=== PATIENT | male | born 1940 | race Caucasian/White ===

== ENCOUNTER 2017-06-07 08:50 | Emergency (ER) | payer OTHER, MEDICARE ==
[~2017-06-07] VITALS: Ht 177.8 cm; Wt 96.2 kg
[~2017-06-07 08:50] MED LIST: ALLOPURINOL100 M1 PO; AMLODIPINE BESY10 M1 PO; HUMALOG 100U100 U/ML SC; LANTUS SOL100 UNIT/1 SC; LASIX40 M1 PO; LITE COAT ASPI325 MG PO; LYRICA75 MG PO; PLAVIX 75MG TAB75 MG PO; PRAVASTATIN40 MG PO
[2017-06-07 09:43] LABS: ABSOLUTE BASOPHIL COUNT 0.1 /CUMM (0.0-0.2); ABSOLUTE EOSINOPHIL COUNT 0.5 /CUMM (0.0-0.7); ABSOLUTE GRANULOCYTE CT 6.8 /CUMM (1.4-6.5); ABSOLUTE LYMPH COUNT 1.8 /CUMM (1.2-3.4); ABSOLUTE MONOCYTE COUNT 0.7 /CUMM (0.10-0.60); BASOPHIL % 0.8 % (0.0-2.0); EOSINOPHIL % 4.9 % (0-5); GRANULOCYTE % 68.8 % (42.2-75.2); HEMATOCRIT 45.2 % (42-52); MEAN CORPUSCULAR HGB CONC 32.4 G/DL (33.0-37.0); MEAN CORPUSCULAR VOLUME 92.6 FL (80.0-94.0); MEAN PLATELET VOLUME 8.2 FL (7.4-10.4); PLATELET COUNT 423 /CUMM (130-400); RBC DISTRIBUTION WIDTH 14.7 % (11.5-14.5); RED BLOOD CELL CT 4.88 /CUMM (4.70-6.10); WHITE BLOOD CELL COUNT 9.9 /CUMM (4.8-10.8)
[2017-06-07] MEDS ORDERED: CLOPIDOGREL75 M1 PO (09:50)
--- NOTE | 2017-06-07 09:50 | RADIOLOGY REPORT ---
EXAMINATION: XR PORTABLE CHEST CLINICAL INFORMATION: Change in mental status. COMPARISON: None TECHNIQUE: Portable frontal view of the chest was obtained. FINDINGS: The lungs are well expanded. No convincing lobar consolidation. No pulmonary edema, pleural effusion, or pneumothorax. No mediastinal widening. Sternotomy wires. Aortic atherosclerotic calcification. No acute osseous abnormalities. IMPRESSION: No acute pulmonary pathology demonstrated.
--- NOTE | 2017-06-07 09:53 | ED AMS/SEIZURE/WEAK/DIZZY ---
History of Present Illness General Chief Complaint: Altered Mental Status Stated Complaint: AMS, CONFUSION, S/P STRESS TEST Source: patient, family Exam Limitations: no limitations Vital Signs & Intake/Output Vital Signs & Intake/Output ED Intake and Output 06/08 0000 06/07 1200 Intake Total Output Total Balance Patient 212 lb Weight Weight Reported by Patient Measurement Method Allergies Coded Allergies: NO KNOWN ALLERGIES (03/14/14) Reconcile Medications Allopurinol 100 MG TABLET 1 TAB PO DAILY GOUT (Reported) Amlodipine Besylate 10 MG TABLET 1 TAB PO DAILY HEART (Reported) Aspirin (Lite Coat Aspirin) 325 MG TABLET 1 TAB PO DAILY HEART (Reported) Clopidogrel Bisulfate (Clopidogrel) 75 MG TABLET 1 TAB PO DAILY BLOOD THINNER (Reported) Furosemide (Lasix) 40 MG TABLET 1 TAB PO DAILY WATER RETENTION (Reported) Insulin Glargine,Hum.rec.anlog (Lantus Solostar) 100 UNIT/ML (3 ML) INSULN.PEN 36 UNIT SC QPM DIABETES (Reported) Triage Note: SENT FROM CARDIOLOGY DEPARTMENT, PT WAS PREPARING FOR A STRESS TEST, HAD SHORT EPISODE OF UNRESPONSIVENESS DURING IV INSERTION. PRESENTLY ALERT, DENIES HEADACHE, BLURRED VISION OR WEAKNESS. Triage Nurses Notes Reviewed? yes Onset: Abrupt Duration: minute(s): Timing: single episode today Severity: moderate HPI: A 77 year old male with hx CAD s/p CABG, HTN, Diabetes, CVA on plavix was brought in to ER c/o syncopal episode prior to arrival. Patient was at Dr. Brandon's office for a routine echocardiogram and stress test. Patient states that while they were putting an IV in his arm he passed out. Patient states IV was being put in and he went to lay back and then had episode of syncope lasting approximately 15 seconds. Patient states that the nurses around him told them his eyes were unfocused and he was diaphoretic and clammy. Patient has no history of a similar episode in the past, he states he has had blood work in the past without syncopal episode. Patient currently feels in his usual state of health although he has not eaten today and does feel hungry. He denies headache , chest pain, dyspnea, abdominal pain, blurry vision, dizziness, presyncope, vomiting. (Leann PERALTA,Daria Short) Past History Travel History Traveled to [place] past 21 day No Medical History Any Pertinent Medical History? see below for history Neurological: NONE Cardiovascular: hypertension, hyperlipidemia Endocrine: diabetes Surgical History Surgical History: non-contributory Psychosocial History What is your primary language Greek Tobacco Use: Quit >30 days ago ETOH Use: denies use Family History Hx Contributory? No (Daria Briscoe) Review of Systems Review of Systems Constitutional: Reports: no symptoms. EENTM: Reports: no symptoms. Respiratory: Reports: no symptoms. Cardiovascular: Reports: see HPI. GI: Reports: no symptoms. Genitourinary: Reports: no symptoms. Musculoskeletal: Reports: no symptoms. Skin: Reports: see HPI. Neurological/Psychological: Reports: see HPI. Hematologic/Endocrine: Reports: no symptoms. Immunologic/Allergic: Reports: no symptoms. All Other Systems: Reviewed and Negative (Daria Briscoe) Physical Exam Physical Exam General Appearance: well developed/nourished, no apparent distress, alert, awake Head: atraumatic, normal appearance Eyes: Bilateral: normal appearance, PERRL, EOMI. Ears, Nose, Throat: normal pharynx, normal ENT inspection, hearing grossly normal Neck: normal inspection, supple, full range of motion Respiratory: normal breath sounds, no respiratory distress, lungs clear Cardiovascular: regular rate/rhythm Peripheral Pulses: 2+ radial (R), 2+ radial (L) Gastrointestinal: normal bowel sounds, soft, non-tender, no organomegaly Back: normal inspection, normal range of motion Extremities: normal range of motion Neurologic/Psych: awake, alert, oriented x 3, kitchen hand II-XII nml as tested, cerebellar testing WNL Skin: intact, normal color, warm/dry Core Measures ACS in differential dx? Yes CVA/TIA Diagnosis No Sepsis Present: No Sepsis Focused Exam Completed? No (Daria Briscoe) Progress Differential Diagnosis: arrythmia, anemia, benign positional vertigo, CVA/stroke , dehydration, drug intoxication, electrolyte imbalance, GI bleed, hypoglycemia, intracranial mass/tumor, pneumonia, postural hypotension, presyncope Plan of Care: Orders Procedure Date/time Status Heart Healthy Diet 06/07 L Active TROPONIN LEVEL 06/07 1230 Complete EKG 06/07 1230 Active TROPONIN LEVEL 06/07 0912 Complete COMPREHENSIVE METABOLIC PANEL 06/07 0912 Complete CBC WITHOUT DIFFERENTIAL 06/07 0912 Complete EKG 06/07 0907 Active Laboratory Tests 06/07/17 1219: Troponin I < 0.01 06/07/17 0926: Anion Gap 13, Estimated GFR 26 L, BUN/Creatinine Ratio 20.8, Glucose 231 H, Calcium 10.0, Total Bilirubin 0.4, AST 14 L, ALT 25, Alkaline Phosphatase 93, Troponin I < 0.01, Total Protein 6.6, Albumin 4.0, Globulin 2.6, Albumin/ Globulin Ratio 1.5, CBC w Diff NO MAN DIFF REQ, RBC 4.88, MCV 92.6, MCH 30.0, MCHC 32.4 L, RDW 14.7 H, MPV 8.2, Gran % 68.8, Lymphocytes % 18.5 L, Monocytes % 7.0, Eosinophils % 4.9, Basophils % 0.8, Absolute Granulocytes 6.8 H, Absolute Lymphocytes 1.8, Absolute Monocytes 0.7 H, Absolute Eosinophils 0.5 , Absolute Basophils 0.1 Patient's EKG is in sinus rhythm, troponin is negative. Chest x-ray within normal limits. Physical exam without acute findings. This patient does have significant past medical history of previous open heart surgery. He has no current chest pain or dyspnea. Will obtain repeat EKG and troponin to further rule out ACS. Dr. White agrees with this plan. Repeat EKG without acute changes, second troponin is negative. The patient feels in his usual state of health, he has no chest pain, no presyncope. Patient feels ready to go home. Vital signs have been stable while here in the emergency department. Spoke with Dr. Brandon regarding this patient. He agrees with out plan of care, he will follow up with the patient in the office. Diagnostic Imaging: Viewed by Me: Radiology Read. Discussed w/RAD: Radiology Read. CXR Impression: PATIENT: MEGHAN GIBBONS PRESENT AGE : 77 PATIENT ACCOUNT NO: [id number] : 38 LOCATION: [facility] ORDERING PHYSICIAN: Yoseph White MD SERVICE DATE: 06/07/17 EXAM TYPE: RAD - XRY- PORTABLE CHEST XRAY EXAMINATION: XR PORTABLE CHEST CLINICAL INFORMATION: Change in mental status. COMPARISON: None TECHNIQUE: Portable frontal view of the chest was obtained. FINDINGS: The lungs are well expanded. No convincing lobar consolidation. No pulmonary edema, pleural effusion, or pneumothorax. No mediastinal widening. Sternotomy wires. Aortic atherosclerotic calcification. No acute osseous abnormalities. IMPRESSION: No acute pulmonary pathology demonstrated. DICTATED BY: Rodrick Vyas MD DATE/TIME DICTATED:06/07/17941 NEUROSURGERY SPINE PHYSICIAN:TRINY DATE/TIME TRANSCRIBED:06/07/17941 CONFIDENTIAL, DO NOT COPY WITHOUT APPROPRIATE AUTHORIZATION. <Electronically signed in Other Vendor System> SIGNED BY: Rodrick Vyas MD 06/07/17 7999 Initial ED EKG: sinus rhythm @57bpm, LVH, nonspecific ST changes Prior EKG: changed (04/19/14 - slt t wave changes) (Daria Briscoe) Departure Departure Disposition: HOME OR SELF CARE Condition: Stable Clinical Impression Primary Impression: Syncopal episodes Qualifiers: Syncope type: vasovagal syncope Qualified Code: R55 - Syncope and collapse Referrals: Jaden Malagon MD (PCP/Family) Additional Instructions: Follow-up with Dr. Brandon this week, if you cannot hear from them in the next 2 days call the office. Increase your fluids and rest. Return with any worsening symptoms or concerns. Please note that there might be incidental findings in your evaluation that are unrelated to the current emergency department visit. Please notify your primary care doctor about this emergency department visit in order to obtain and review all of the testing performed so that these incidental findings can be monitored as needed. If you had an x-ray performed, please understand that some fractures may not be seen on the initial set of x-rays. If your symptoms persist you might need a repeat set of x-rays to check for such a fracture. If you had a laceration evaluated, please understand that foreign bodies such as glass or wood may not be visible to the naked eye or on plain x-rays. If the wound becomes red, swollen, increasingly more painful or if there is any drainage from the wound, please have it reevaluated by a physician for the possibility of a retained foreign body. If you're unable to follow up as outlined in the discharge instructions please return to the emergency department. Thank you for choosing the [facility] Emergency Department for your care. It was a pleasure to serve you today. Departure Forms: Customer Survey General Discharge Information (Daria Briscoe) PA/SEAMER PANTY HOSE Co-Sign Statement Statement: ED Attending supervision documentation- x I saw and evaluated the patient. I have also reviewed all the pertinent lab results and diagnostic results. I agree with the findings and the plan of care as documented in the PA's/SEAMER PANTY HOSE's documentation. [] I have reviewed the ED Record and agree with the PA's/SEAMER PANTY HOSE's documentation. [] Additions or exceptions (if any) to the PAs/SEAMER PANTY HOSE's note and plan are summarized below: [] (Christopher BENAVIDEZ,Yoseph)
[2017-06-07 12:58] VITALS: BP 137/89
== END 2017-06-07 13:46 ==
LOC: ERH 08:50
PROVIDERS: Emergency Medicine
DX: R55 Syncope and collapse (principal); I10 Essential (primary) hypertension; E11.9 Type 2 diabetes mellitus without complications; Z79.4 Long term (current) use of insulin; Z87.891 Personal history of nicotine dependence
CPT/HCPCS: 71045; 93005; 93010

== ENCOUNTER 2017-11-09 08:43 | Inpatient (IN) | payer OTHER, MEDICARE ==
[~2017-11-09] VITALS: Ht 177.8 cm; Wt 104.8 kg
[~2017-11-09 08:43] MED LIST changes: +CLOPIDOGREL75 M1 PO
--- NOTE | 2017-11-09 09:09 | ED CARDIAC/CP/PALPITATIONS ---
History of Present Illness General Chief Complaint: Chest Pain Stated Complaint: CHEST PAIN, "STOMACH SWELLING UP" Source: patient Exam Limitations: no limitations Vital Signs & Intake/Output Vital Signs & Intake/Output Vital Signs Date Time Temp Pulse Resp B/P B/P Pulse O2 O2 Flow FiO2 Mean Ox Delivery Rate 11/09 905 98.0 54 18 169/78 93 Room Air Allergies Coded Allergies: NO KNOWN ALLERGIES (11/09/17) Reconcile Medications Allopurinol 100 MG TABLET 1 TAB PO DAILY GOUT (Reported) Amlodipine Besylate 10 MG TABLET 1 TAB PO DAILY HEART (Reported) Aspirin (Lite Coat Aspirin) 325 MG TABLET 1 TAB PO DAILY HEART (Reported) Atorvastatin Calcium (Lipitor) 80 MG TABLET 1 TAB PO DAILY CHOLESTEROL ( Reported) Cholecalciferol (Vitamin D3) (Vitamin D-3) 2,000 UNIT TABLET 1 TAB PO DAILY VITAMIN SUPPORT (Reported) Clopidogrel Bisulfate (Clopidogrel) 75 MG TABLET 1 TAB PO DAILY BLOOD THINNER (Reported) Furosemide (Lasix) 40 MG TABLET 1 TAB PO DAILY WATER RETENTION (Reported) Insulin Aspart, Recombinant (Novolog Flexpen) (Unknown Strength) INSULN.PEN ( Unknown Dose) SC TIDAC DIABETES (Reported) Insulin Detemir (Levemir Flextouch) 100 UNIT/ML (3 ML) INSULN.PEN 40 UNITS SC DAILY DIABETES (Reported) Triage Note: 77M TO ED WITH HEAVY TRANSVERSE CHEST PAIN THAT RADIATES TO BOTH SIDES OF CHEST AND INTO POSTERIOR NECK SINCE YESTERDAY AND UNSURE OF WHAT HE WAS DOING WHEN THE PAIN STARTED. PT FOLLOWED BY DR DUBON, CURRENTLY TAKES PLAVIX AND HX QUAD CABG 20 YEARS AGO. ALSO REPORTS SLIGHT SOB WITH CARDIAC EXERCISE PHYSIOLOGIST COUGH AND O2 SAT 93-94% RA. SKIN WARM, DRY, INTACT. NOTABLE CHANGES ON EKG WITH INVERTED T WAVES AND VENTRICULAR ECTOPY, WIDE COMPLEXES. PT NOTED TO BE BELCHING IN [place], STATES THAT HAS BEEN HAPPENING MORE THE LAST DAY OR SO AND HE FEELS THAT HIS ABDOMEN "FEELS LIKE A ROCK". LAST BM YESTERDAY AND NORMAL, DENIES BLACK OR BLOODY STOOLS. #18 EST TO AMA AND LABS DRAWN AND SENT AND PT TAKEN IMMEDIATELY TO ROOM 10 FOR EVALUATION Triage Nurses Notes Reviewed? yes Onset: Abrupt Duration: day(s): (1), constant, continues in ED Timing: single episode today Quality/Severity: moderate, pressure (HEAVY) Location: central Radiation: LEFT RT CHEST Activities at Onset: activity Prior Chest Pain/Card Workup: heart attack (20 YEARS AGO ), CABG 20 YEARS AGO Modifying Factors: Worsens With: exercise. Nitro Today/Relief: 0.4 mg x 1, provided by ED, mild relief, NITRO OINTMENT MILD REFILF Aspirin Today: 325 mg x 1, provided at home HPI: 77-year-old male history of hypertension, hyperlipidemia, CKD, coronary artery disease, [place] with CABG 20 years ago presents for evaluation of chest pain. The pain started yesterday and has been persistent. The pain started while he was walking around and seems to get worse on exertion somewhat better at rest. The pain is located in the center of his chest radiates to both sides of the chest. He describes it as a heaviness and pressure. Associated with some shortness of breath and cough. No nausea vomiting sweats or chills no hemoptysis or lower extremity edema. He states this does not feel like his previous heart attack. He took 325 aspirin 75 of Plavix before arrival. No recent surgery or recent trauma. He sees Dr. Dubon. He also reports that he feels like there is a "rock in MY abdomen". No diarrhea no history of constipation. (Severo Bethea) Past History Travel History Traveled to [place] past 21 day No Medical History Any Pertinent Medical History? see below for history Neurological: NONE EENT: NONE Cardiovascular: hypertension, hyperlipidemia Respiratory: NONE Gastrointestinal: NONE Hepatic: NONE Renal: NONE Musculoskeletal: NONE Psychiatric: NONE Endocrine: diabetes Blood Disorders: NONE Surgical History Surgical History: non-contributory Psychosocial History What is your primary language Wallisian Tobacco Use: Refused to answer Family History Hx Contributory? No (Severo Bethea) Review of Systems Review of Systems Constitutional: Reports: no symptoms. EENTM: Reports: no symptoms. Respiratory: Reports: see HPI, cough, short of breath. Cardiovascular: Reports: no symptoms. GI: Reports: see HPI, abdominal pain. Genitourinary: Reports: no symptoms. Musculoskeletal: Reports: no symptoms. Skin: Reports: no symptoms. Neurological/Psychological: Reports: no symptoms. Hematologic/Endocrine: Reports: no symptoms. Immunologic/Allergic: Reports: no symptoms. All Other Systems: Reviewed and Negative (Severo Bethea) Physical Exam Physical Exam General Appearance: well developed/nourished, no apparent distress, alert, awake Head: atraumatic, normal appearance Eyes: Bilateral: normal appearance, PERRL, EOMI. Ears, Nose, Throat: normal pharynx, normal ENT inspection, hearing grossly normal Neck: normal inspection, supple, full range of motion Respiratory: normal breath sounds, chest non-tender, no respiratory distress, lungs clear Cardiovascular: regular rate/rhythm, normal peripheral pulses Peripheral Pulses: 2+ radial (R), 2+ radial (L) Gastrointestinal: normal bowel sounds, soft, non-tender, no organomegaly, distention Rectal: normal exam, normal rectal tone, heme negative stool Back: normal inspection, normal range of motion, no vertebral tenderness Extremities: normal inspection, normal range of motion, no edema Neurologic/Psych: no motor/sensory deficits, awake, alert, oriented x 3 Skin: intact, normal color, warm/dry Core Measures ACS in differential dx? Yes CVA/TIA Diagnosis No Sepsis Present: No Sepsis Focused Exam Completed? No (Davey PERALTA,Severo) Progress Differential Diagnosis: AMI, aortic dissection, atrial fibrillation, cholecystitis, CHF/pulm edema, costochondritis, musculoskeletal pain, myocarditis, pancreatitis, pericarditis, pneumonia, pneumothorax, pulmonary embolism, PUD/GERD, PVCs/PACs, unstable angina, V-fib/V-Tach, WPW syndrome Diagnostic Imaging: Viewed by Me: CT Scan. Discussed w/RAD: CT Scan. Radiology Impression: PATIENT: MEGHAN GIBBONS PRESENT AGE: 77 PATIENT ACCOUNT NO: [id number] : 38 LOCATION: [facility] ORDERING PHYSICIAN: Severo PERALTA SERVICE DATE: 11/09/17 EXAM TYPE: CAT - CT ABD & PELVIS W/O IV CONTRAS; CT CHEST WO IV CONTRAST EXAMINATION: CT CHEST, ABDOMEN AND PELVIS WITHOUT CONTRAST CLINICAL INFORMATION: Chest pain and shortness of breath. Presumptive diagnosis of pneumonia, effusion and edema. Abdominal distention and epigastric pain. Presumptive diagnosis of small bowel obstruction, diverticulitis, cholecystitis, pancreatitis. COMPARISON: Abdominal ultrasound dated 01/30/2017. TECHNIQUE: Multidetector volumetric imaging was performed from the base of the neck through the pubic symphysis. Sagittal and coronal reformatted images were obtained on the technologist workstation. DLP: 1065.83 mGy-cm. FINDINGS: CT SCAN OF THE CHEST: LUNGS: Small bilateral simple appearing posteriorly layering pleural effusions are seen. Multiple bilateral calcified pleural plaques are seen, suggesting prior asbestos exposure. Evaluation of the lungs is limited due to motion artifact. Dependent reticular nodular and patchy groundglass opacities are seen in both lower lobes with associated mild traction bronchiectasis, suspicious for traction bronchiectasis in regions of scarring. There are also scattered linear and groundglass opacities is seen throughout all lobes, consistent with areas of atelectasis or scarring. A few fissural based nodular densities are seen, consistent with fissural based lymph nodes. No suspicious pulmonary nodule or mass is seen. No pneumothorax. Central airways are patent. LYMPHOVASCULAR STRUCTURES: The patient is status post median sternotomy and CABG surgery. Severe coronary artery calcifications and great vessel calcifications are noted. Mild atherosclerotic calcifications of the aorta are noted. Aortic and heart size normal. No pericardial effusion. No mediastinal, hilar or axillary adenopathy or free fluid collection. THYROID GLAND: Unremarkable to the extent included. BONES: There is moderate vertebral spondylosis in the mid and lower thoracic spine. No suspicious bone findings. CT SCAN OF THE ABDOMEN AND PELVIS: LIVER, GALLBLADDER, AND BILIARY TREE: The liver is normal in size, shape, and attenuation. No focal hepatic lesion on noncontrast imaging. No biliary ductal dilatation is present. The gallbladder is unremarkable with no evidence of radiopaque gallstones, gallbladder wall thickening, or obvious pericholecystic inflammatory changes. No evidence of acute cholecystitis. PANCREAS: Diffusely atrophic, but otherwise unremarkable on noncontrast imaging. No evidence of pancreatitis by imaging. SPLEEN: There may be a small 0.6 cm low-attenuation mass in the spleen (series 2 , image 53) versus perihilar fat infiltration. The spleen is otherwise unremarkable. ADRENAL GLANDS: Unremarkable on noncontrast imaging. KIDNEYS AND URETERS: The kidneys are normal in size, shape, and attenuation. No hydronephrosis, hydroureter, or calculi seen. Nonspecific bilaterally symmetric perinephric stranding. BLADDER: Unremarkable. PELVIC VISCERA: Unremarkable. GASTROINTESTINAL TRACT: The small and large bowel are unremarkable. No significant colonic diverticulosis or diverticulitis is seen. The appendix is unremarkable. ABDOMINAL WALL: There is a small fat-containing direct left inguinal hernia. LYMPH NODES: No adenopathy is seen in the abdomen or pelvis. VASCULAR: Abdominal aorta is normal in caliber and demonstrates moderate severe atherosclerotic calcifications, which also involve several of the branch vessels , including the origins of the celiac axis and SMA. No periaortic collections. OSSEOUS STRUCTURES: There is moderate vertebral spurring in the upper and mid lumbar spine. Mild facet arthropathy is seen in the lower lumbar spine. No suspicious bone findings. IMPRESSION: CT scan of the chest: 1. Small bilateral simple appearing pleural effusions are seen. Associated calcified pleural plaques are noted. Findings may be related to asbestos exposure. Clinical correlation requested. 2. Lung parenchymal detail limited due to motion artifact. There appear to be scattered areas of atelectasis or scarring, most prominent in both lower lobes with associated mild traction bronchiectasis. No definite superimposed focal pneumonia noted. 3. Severe coronary artery calcifications and moderate to severe other vascular calcifications. CT scan of the abdomen and pelvis: 1. No acute intra-abdominal or pelvic findings. Specifically, no evidence of acute cholecystitis, pancreatitis, bowel obstruction, or diverticulitis. 2. Small fat-containing direct left inguinal hernia. 3. Probable pseudolesion of fat invagination along the splenic hilum into the splenic parenchyma. DICTATED BY: Lalita Quan MD DATE/TIME DICTATED :11/09/17955 SR. MEDIA MANAGER:TRINY DATE/TIME TRANSCRIBED:11/09/17955 CONFIDENTIAL, DO NOT COPY WITHOUT APPROPRIATE AUTHORIZATION. < Electronically signed in Other Vendor System> SIGNED BY: Lalita Quan MD 11/09/17 1022 Initial ED EKG: SINUS TACHYCARDIA RATE 114, VENTRICULAR BIGEMINY ABNORMAL REPOLARIZATION SUGGEST ISCHEMIA st DEPRESSIONS IN CHEST LEADS Prior EKG: changed (Davey PERALTA,Severo) Plan of Care: Orders Procedure Date/time Status Add-on Test (ER Only) 11/09 928 Active Add-on Test (ER Only) 11/09 908 Active TSH REFLEX 11/09 899 Complete MAGNESIUM 11/09 899 Complete LIPASE 11/09 899 Complete D-DIMER 11/09 899 Complete B-TYPE NATRIURETIC PEP (BNP) 11/09 899 Complete TROPONIN LEVEL 11/10 847 Complete PARTIAL THROMBOPLASTIN TIME 11/10 847 Complete PROTHROMBIN TIME 11/10 847 Complete COMPREHENSIVE METABOLIC PANEL 11/10 847 Complete CBC WITHOUT DIFFERENTIAL 11/10 847 Complete EKG 11/09 844 Active Current Medications Sig/Elham Start time Last Medication Dose Stop Time Status Admin Heparin Sodium 4,000 UNIT ONCE ONE 11/09 1100 UNVr (Porcine) 11/09 1101 (Heparin Bolus) Heparin Sodium 25,000 UNIT Q24H 11/09 1100 UNVr (Porcine) (Heparin) Sodium Chloride 500 ML Laboratory Tests 11/09/17 0900: Anion Gap 13, Estimated GFR 31 L, BUN/Creatinine Ratio 21.4, Glucose 131 H, Calcium 10.0, Magnesium 2.0, Total Bilirubin 0.6, AST 25, ALT 27, Alkaline Phosphatase 96, Troponin I 0.81 *H, Bvs-A-Fsmcwaqwvbb Pept 7300 H, Total Protein 6.6, Albumin 3.8, Globulin 2.8, Albumin/Globulin Ratio 1.4, Lipase 73, TSH &T3 &Free T4 Intrp 2.250, PT 9.9, INR 0.91, APTT 33, D-Dimer High Sensitivty < 200, CBC w Diff NO MAN DIFF REQ, RBC 4.50 L, MCV 92.3, MCH 28.8, MCHC 31.2 L , RDW 15.5 H, MPV 8.7, Gran % 80.7 H, Lymphocytes % 9.1 L, Monocytes % 7.3, Eosinophils % 2.6, Basophils % 0.3, Absolute Granulocytes 10.8 H, Absolute Lymphocytes 1.2, Absolute Monocytes 1.0 H, Absolute Eosinophils 0.3, Absolute Basophils 0 Patient presents for evaluation of chest pain or chest pain started yesterday. He does have a history of coronary artery disease. Vital signs are stable. Labs EKG ordered patient medicated with sublingual nitroglycerin. EKG shows ventricular bigeminy with ST depressions in the chest leads. Blood work shows a troponin of 0.81 and a BNP is 7300. Chest CT shows small bilateral pleural effusions without edema or other acute findings. D-dimer is negative. Patient was given 2 mg of morphine IV and topical nitroglycerin and on reevaluation reports that his pain went from a 5 out of 10 to a 1 out of 10 now. He appears comfortable. Spoke with Dr. Romeo who recommends heparinizing the patient and giving 5 of IV Lopressor. Patient already took aspirin and Plavix before his arrival. Patient will be admitted to the hospital for further evaluation and treatment. Spoke with Dr. ALVAREZ HE agrees. (Davey PERALTASevero) (Tony Alvarez MD) Departure Departure Disposition: STILL A PATIENT Condition: Stable Clinical Impression Primary Impression: NSTEMI (non-ST elevated myocardial infarction) Referrals: Jaden Malagon MD (PCP/Family) Departure Forms: Customer Survey General Discharge Information Admission Note Spoke With: Elida Quevedo MD Documentation of Exam: Documentation of any treatments & extenuating circumstances including Concerns Regarding Discharge (functional status, medication knowledge or non-compliance, living conditions, etc.) that warrant an admission rather than observation: [ SERIAL EKG, SERIAL LABS, HEPARIN, CARDIOLOGY, ECHO, TELE] (Severo Bethea) PA/CARDIAC EXERCISE PHYSIOLOGIST Co-Sign Statement Statement: ED Attending supervision documentation- [x] I saw and evaluated the patient. I have also reviewed all the pertinent lab results and diagnostic results. I agree with the findings and the plan of care as documented in the PA's/CARDIAC EXERCISE PHYSIOLOGIST's documentation. Patient presents for evaluation of the chest pain after traveling in from [place]. Physical examination reveals slightly irregular heart rate with equal upper extremity pulses and mild lower extremity pretibial pitting edema. Calves are nontender. [] I have reviewed the ED Record and agree with the PA's/CARDIAC EXERCISE PHYSIOLOGIST's documentation. [] Additions or exceptions (if any) to the PAs/CARDIAC EXERCISE PHYSIOLOGIST's note and plan are summarized below: [] (Tony Alvarez MD) Critical Care Note Critical Care Note Critical Care Time: non-applicable (Severo Bethea)
[2017-11-09 09:13] LABS: ABSOLUTE BASOPHIL COUNT 0 /CUMM (0.0-0.2); ABSOLUTE EOSINOPHIL COUNT 0.3 /CUMM (0.0-0.7); ABSOLUTE GRANULOCYTE CT 10.8 /CUMM (1.4-6.5); ABSOLUTE LYMPH COUNT 1.2 /CUMM (1.2-3.4); BASOPHIL % 0.3 % (0.0-2.0); EOSINOPHIL % 2.6 % (0-5); GRANULOCYTE % 80.7 % (42.2-75.2); HEMATOCRIT 41.6 % (42-52); MEAN CORPUSCULAR HGB 28.8 PG (27.0-31.0); MEAN CORPUSCULAR HGB CONC 31.2 G/DL (33.0-37.0); MEAN CORPUSCULAR VOLUME 92.3 FL (80.0-94.0); MEAN PLATELET VOLUME 8.7 FL (7.4-10.4); PLATELET COUNT 309 /CUMM (130-400); RBC DISTRIBUTION WIDTH 15.5 % (11.5-14.5); WHITE BLOOD CELL COUNT 13.4 /CUMM (4.8-10.8)
[2017-11-09 09:22] LABS: PT 9.9 SEC (9.4-12.5); PTT 33 SEC (25-37)
[2017-11-09] MEDS ORDERED: LEVEMIR FL100 UNIT/1 SC (10:06)
[2017-11-09] MEDS ORDERED: LIPITOR80 M1 PO (10:07)
[2017-11-09] MEDS ORDERED: NOVOLOG FL100 UNIT/1 SC (10:07)
[2017-11-09] MEDS ORDERED: VITAMIN D-32000 UNIT PO (10:08)
--- NOTE | 2017-11-09 10:22 | CT SCAN REPORT ---
EXAMINATION: CT CHEST, ABDOMEN AND PELVIS WITHOUT CONTRAST CLINICAL INFORMATION: Chest pain and shortness of breath. Presumptive diagnosis of pneumonia, effusion and edema. Abdominal distention and epigastric pain. Presumptive diagnosis of small bowel obstruction, diverticulitis, cholecystitis, pancreatitis. COMPARISON: Abdominal ultrasound dated 01/30/2017. TECHNIQUE: Multidetector volumetric imaging was performed from the base of the neck through the pubic symphysis. Sagittal and coronal reformatted images were obtained on the technologist workstation. DLP: 1065.83 mGy-cm. FINDINGS: CT SCAN OF THE CHEST: LUNGS: Small bilateral simple appearing posteriorly layering pleural effusions are seen. Multiple bilateral calcified pleural plaques are seen, suggesting prior asbestos exposure. Evaluation of the lungs is limited due to motion artifact. Dependent reticular nodular and patchy groundglass opacities are seen in both lower lobes with associated mild traction bronchiectasis, suspicious for traction bronchiectasis in regions of scarring. There are also scattered linear and groundglass opacities is seen throughout all lobes, consistent with areas of atelectasis or scarring. A few fissural based nodular densities are seen, consistent with fissural based lymph nodes. No suspicious pulmonary nodule or mass is seen. No pneumothorax. Central airways are patent. LYMPHOVASCULAR STRUCTURES: The patient is status post median sternotomy and CABG surgery. Severe coronary artery calcifications and great vessel calcifications are noted. Mild atherosclerotic calcifications of the aorta are noted. Aortic and heart size normal. No pericardial effusion. No mediastinal, hilar or axillary adenopathy or free fluid collection. THYROID GLAND: Unremarkable to the extent included. BONES: There is moderate vertebral spondylosis in the mid and lower thoracic spine. No suspicious bone findings. CT SCAN OF THE ABDOMEN AND PELVIS: LIVER, GALLBLADDER, AND BILIARY TREE: The liver is normal in size, shape, and attenuation. No focal hepatic lesion on noncontrast imaging. No biliary ductal dilatation is present. The gallbladder is unremarkable with no evidence of radiopaque gallstones, gallbladder wall thickening, or obvious pericholecystic inflammatory changes. No evidence of acute cholecystitis. PANCREAS: Diffusely atrophic, but otherwise unremarkable on noncontrast imaging. No evidence of pancreatitis by imaging. SPLEEN: There may be a small 0.6 cm low-attenuation mass in the spleen (series 2, image 53) versus perihilar fat infiltration. The spleen is otherwise unremarkable. ADRENAL GLANDS: Unremarkable on noncontrast imaging. KIDNEYS AND URETERS: The kidneys are normal in size, shape, and attenuation. No hydronephrosis, hydroureter, or calculi seen. Nonspecific bilaterally symmetric perinephric stranding. BLADDER: Unremarkable. PELVIC VISCERA: Unremarkable. GASTROINTESTINAL TRACT: The small and large bowel are unremarkable. No significant colonic diverticulosis or diverticulitis is seen. The appendix is unremarkable. ABDOMINAL WALL: There is a small fat-containing direct left inguinal hernia. LYMPH NODES: No adenopathy is seen in the abdomen or pelvis. VASCULAR: Abdominal aorta is normal in caliber and demonstrates moderate severe atherosclerotic calcifications, which also involve several of the branch vessels, including the origins of the celiac axis and SMA. No periaortic collections. OSSEOUS STRUCTURES: There is moderate vertebral spurring in the upper and mid lumbar spine. Mild facet arthropathy is seen in the lower lumbar spine. No suspicious bone findings. IMPRESSION: CT scan of the chest: 1. Small bilateral simple appearing pleural effusions are seen. Associated calcified pleural plaques are noted. Findings may be related to asbestos exposure. Clinical correlation requested. 2. Lung parenchymal detail limited due to motion artifact. There appear to be scattered areas of atelectasis or scarring, most prominent in both lower lobes with associated mild traction bronchiectasis. No definite superimposed focal pneumonia noted. 3. Severe coronary artery calcifications and moderate to severe other vascular calcifications. CT scan of the abdomen and pelvis: 1. No acute intra-abdominal or pelvic findings. Specifically, no evidence of acute cholecystitis, pancreatitis, bowel obstruction, or diverticulitis. 2. Small fat-containing direct left inguinal hernia. 3. Probable pseudolesion of fat invagination along the splenic hilum into the splenic parenchyma.
--- NOTE | 2017-11-09 11:10 | History & Physical ---
Livier Reyna MD 11/09/17 1110: General Information and HPI MD Statement: I have seen and personally examined MEGHAN GIBBONS and documented this H&P. The patient is a 77 year old M who presented with a patient stated chief complaint of CHEST PAIN Source of Information: patient, family Exam Limitations: no limitations History of Present Illness: This is a 77-year-old male with the past medical history significant for hypertension, hyperlipidemia, chronic kidney disease, coronary artery disease status post DC with 4 vessel CABG 20 years ago on Plavix and aspirin, diabetes on insulin that presents with chest pain of 2 days duration. The patient is accompanied by his who adds to the story. The patient states that the pain began yesterday somewhat suddenly and has been persistent since. He states that it is localized on both sides of his chest and the back of his neck. The patient was not sure what he was doing when the pain began but states that it is worst with exertion, inspiration, and palpation. He denies any change in the pain on position change. The patient had a four-vessel CABG done 20 years ago at [facility] by Dr. Hendrix. He has since followed up with Dr. Brandon was supposed to see him on Tuesday for regular follow-up. The patient additionally notes some mild dyspnea and a nonproductive cough for the same duration. He denies any palpitations or injury to the chest, no lifting heavy loads recently. He states that the pain that he is having does not feel like his DC associated pain. The patient took his morning meds including aspirin and Plavix before arrival at the ED, he did not take his Lasix this morning. Of note, the patient just arrived home from a long drive from [place]. The drive occurred from Tuesday morning to Tuesday night, currently it is Tuesday. The patient states that after the drive he had increased lower extremity edema. The patient does take Lasix chronically but is unsure if it is for isolated edema or congestive heart failure. The patient also admits to stomach "swelling" and increased gas production for the past 2 days as well. He states that it feels like "a rock is in my stomach ". Over the past year the patient has seen weight loss of about 40 pounds by cutting out bad foods. His weight has dropped from 256-215 pounds. The patient states that yesterday he ate only an exam which was sausage on wheat bread and at lunch hamburger. His ate the same food and did not have any gastroenterologic symptoms. He denies any nausea, vomiting, diarrhea, constipation, last bowel movement was yesterday and was normal, no melena or hematochezia. The patient denies any fever or chills. He states that this "bloated" feeling is not normal for him. The patient has no history of GI issues, does not have a residential remodeling subcontractor, never had an upper endoscopy but did have colonoscopy last 4 years ago with reportedly 1-2 polyps found. The patient has history of 3 hernia surgeries, remote. The patient used to smoke in 1966 while he was in the [employer] for 10-12 years, 1 pack per day. He denies any use of drugs and states that he drinks about 1 beer per month. Allergies/Medications Allergies: Coded Allergies: NO KNOWN ALLERGIES (11/09/17) Home Med list Allopurinol 100 MG TABLET 1 TAB PO DAILY GOUT (Reported) Amlodipine Besylate 10 MG TABLET 1 TAB PO DAILY HEART (Reported) Aspirin (Lite Coat Aspirin) 325 MG TABLET 1 TAB PO DAILY HEART (Reported) Atorvastatin Calcium (Lipitor) 80 MG TABLET 1 TAB PO DAILY CHOLESTEROL ( Reported) Cholecalciferol (Vitamin D3) (Vitamin D-3) 2,000 UNIT TABLET 1 TAB PO DAILY VITAMIN SUPPORT (Reported) Clopidogrel Bisulfate (Clopidogrel) 75 MG TABLET 1 TAB PO DAILY BLOOD THINNER (Reported) Furosemide (Lasix) 40 MG TABLET 1 TAB PO DAILY WATER RETENTION (Reported) Insulin Aspart, Recombinant (Novolog Flexpen) (Unknown Strength) INSULN.PEN ( Unknown Dose) SC TIDAC DIABETES (Reported) Insulin Detemir (Levemir Flextouch) 100 UNIT/ML (3 ML) INSULN.PEN 40 UNITS SC DAILY DIABETES (Reported) Compliance With Home Meds: GOOD Past History Travel History Traveled to [place] past 21 day No Medical History Neurological: NONE EENT: NONE Cardiovascular: CAD, hypertension, hyperlipidemia Respiratory: NONE Gastrointestinal: NONE Hepatic: NONE Renal: NONE, chronic kidney disease Musculoskeletal: NONE Psychiatric: NONE Endocrine: diabetes Blood Disorders: NONE Surgical History Surgical History: non-contributory Past Family/Social History Psychosocial History Primary Language: Taiwanese Smoking Status: Former Smoker ETOH Use: occasional use Illicit Drug Use: denies illicit drug use Review of Systems Review of Systems Constitutional: Reports: no symptoms. EENTM: Reports: no symptoms. Cardiovascular: Reports: chest pain. Respiratory: Reports: cough, short of breath. GI: Reports: bloating. Genitourinary: Reports: no symptoms. Musculoskeletal: Reports: no symptoms. Skin: Reports: no symptoms. Neurological/Psychological: Reports: no symptoms. Hematologic/Endocrine: Reports: no symptoms. Exam & Diagnostic Data Last 24 Hrs of Vital Signs/I&O Vital Signs Date Time Temp Pulse Resp B/P B/P Pulse O2 O2 Flow FiO2 Mean Ox Delivery Rate 11/09 1148 98.0 54 18 169/78 11/09 0906 98.0 54 18 169/ 93 Room Air Physical Exam General Appearance Alert, Oriented X3, Cooperative, No Acute Distress Skin No Rashes, No Breakdown, No Significant Lesion Skin Temp/Moisture Exam: Warm/Dry HEENT Atraumatic, PERRLA, EOMI, Mucous Membr. moist/pink Cardiovascular Regular Rate, Normal S1, Normal S2, No Murmurs Lungs Clear to Auscultation, Normal Air Movement Abdomen Normal Bowel Sounds, Soft, No Tenderness Neurological Normal Speech Extremities No Clubbing, No Cyanosis, No Edema Last 24 Hrs of Labs/Edmund: Laboratory Tests 11/09/17 0900: Anion Gap 13, Estimated GFR 31 L, BUN/Creatinine Ratio 21.4, Glucose 131 H, Calcium 10.0, Magnesium 2.0, Total Bilirubin 0.6, AST 25, ALT 27, Alkaline Phosphatase 96, Troponin I 0.81 *H, Dno-E-Ojxiracstnh Pept 7300 H, Total Protein 6.6, Albumin 3.8, Globulin 2.8, Albumin/Globulin Ratio 1.4, Lipase 73, TSH &T3 &Free T4 Intrp 2.250, PT 9.9, INR 0.91, APTT 33, D-Dimer High Sensitivty < 200, CBC w Diff NO MAN DIFF REQ, RBC 4.50 L, MCV 92.3, MCH 28.8, MCHC 31.2 L , RDW 15.5 H, MPV 8.7, Gran % 80.7 H, Lymphocytes % 9.1 L, Monocytes % 7.3, Eosinophils % 2.6, Basophils % 0.3, Absolute Granulocytes 10.8 H, Absolute Lymphocytes 1.2, Absolute Monocytes 1.0 H, Absolute Eosinophils 0.3, Absolute Basophils 0 Assessment/Plan Assessment: This is a 77-year-old male with the past medical history significant for hypertension, hyperlipidemia, chronic kidney disease, coronary artery disease status post DC with 4 vessel CABG 20 years ago on Plavix and aspirin, diabetes on insulin, CKD stage IV, that presents with chest pain of 2 days duration. The pain is atypical for an acute coronary syndrome and worsens on inspiration, palpation. He also endorses some mild dyspnea and a nonproductive cough. The patient has also noted increased abdominal swelling and feeling like "a rock is in my stomach". The patient has lost about 40 pounds in the past year secondary to diet changes. The patient recently took a car trip from [place] 3 days ago ( in a span of 2 days). Does endorse frequent stops but regardless was immobile for quite some time. The patient follows up with Dr. Hurd as his cytotechnologist and Dr. Brandon for his reception specialist, current with both. In the ED, vitals were temperature 98, heart rate 54, respiratory rate 18, blood pressure 116/78, 93% oxygen saturation on room air. His EKG showed a rate of 114 Q waves in lead III unchanged from prior, questionable T-wave inversion in V4 through V6 as well as lead I and aVL with PVCs. WBC count was 13.4, hemoglobin 13, BUN 45, creatinine 2.1 at baseline, d-dimer negative, magnesium normal, LFTs normal, lipase normal, troponin of 0.81, proBNP of 7300. CT scan of the abdomen and pelvis as well as chest showed small bilateral pleural effusions with severe coronary artery calcifications and moderate to severe vascular calcifications. The patient was given nitroglycerin, 2 mg of morphine which helped to bring the pain down from a 5 to a 1 on a scale of 10. The patient was guaiac and was negative, subsequently started on heparin as per the instruction of Dr. Romeo. Assessment -Chest pain secondary to ACS in the setting of coronary artery disease versus pulmonary embolism in the setting of recent long road trip versus gastroenterologic issue with accompanying abdominal bloating as well as increased belching -Chronic kidney disease stage IV -Diabetes on insulin -Hypertension -Hyperlipidemia Plan -Admit patient to telemetry for further evaluation and monitoring -Repeat EKG and troponins at 3 PM and 9 PM -Follow-up cardiac consult with Dr. Agueda -Although d-dimer is negative, we will move ahead with VQ scan as patient does have EKG changes as well as increased chest pain on inspiration in the setting of recent long road trip -Echocardiogram has been ordered -Monitor I's and O's -Obtain records from Dr. Brandon on most recent echocardiogram which is not in the system -Continue patient's home medications, of note he has taken all of his medications this morning except for Lasix 40 mg. -Accu-Cheks, 40 units Levemir nightly as per home dose, sliding scale insulin low-dose. -Follow-up lipid panel in the morning, hemoglobin A1c, thyroid function tests. DVT prophylaxis with heparin Heart healthy diet Patient is full code As Ranked By This Provider Problem List: 1. NSTEMI (non-ST elevated myocardial infarction) Core Measures/Misc (12/26) Acute Coronary Syndrome ACS Diagnosis: No Congestive Heart Failure Congestive Heart Failure Diagnosis No Cerebrovascular Accident CVA/TIA Diagnosis: No VTE (View Protocol) VTE Risk Factors Immobility No Mechanical VTE Prophylaxis d/t DVT (suspected/known) No VTE Pharm Prophylaxis d/t NA PharmProphylax ordered Sepsis (View protocol) Sepsis Present: No If YES complete Sepsis Event Note If YES complete Sepsis Event Note Elida Quevedo MD 11/09/17 1336: Core Measures/Misc (12/26) Sepsis (View protocol) If YES complete Sepsis Event Note If YES complete Sepsis Event Note Attending MD Review Statement Attending Statement Attending MD Statement: examined this patient, discuss w/resident/PA/FLORAL DESIGN TEACHER, agreed w/resident/PA/FLORAL DESIGN TEACHER, reviewed EMR data (avail), discussed with nursing, discussed with case mgmt, reviewed images Attending Assessment/Plan: 77-year-old male fairly extensive past medical history including coronary artery disease, bypass, diabetes on insulin and CKD who is here with chest pain. His symptoms started at rest and he has some EKG changes I am not sure whether they are ischemic or because of PVCs. In addition he has a mildly elevated troponin. At this point will bring him into telemetry and treat him as an ACS. He is on dual antiplatelet therapy and per cardiology he will be started on IV heparin. We will continue his statin, his beta-savi, get an echocardiogram and follow closely.
--- NOTE | 2017-11-09 13:10 | Admission Certification ---
Admission Certification Certification Statement - As attending physician, I certify that at the time of - admission, based on clinical presentation, severity of - symptoms, need for further diagnostic testing and - therapeutic interventions, and risk of adverse outcomes - without in-hospital treatment, in my clinical assessment, - this patient requires an acute hospital stay for a minimum - of two nights or longer. I have also considered psychsocial - factors such as support system, advanced age, financial - issues, cognitive issues, and failed out-patient treatments, - past re-admission history, safety of patient, and lack of - compliance as applicable. Specific rationale supporting this admission is: HTN, Hyperlipidemia, cad and cp
[2017-11-09 17:00] VITALS: BP 168/82
--- NOTE | 2017-11-09 17:00 | NUCLEAR MEDICINE REPORT ---
EXAMINATION: NM LUNG SCAN V/Q CLINICAL INFORMATION: Dyspnea, chest pain worse on inspiration. COMPARISON: Chest CT same day TECHNIQUE: 21 mCi xenon-133 aerosol and 3.98 mCi technetium MAA intravenous. FINDINGS: The ventilation images are within normal limits. Some heterogeneous ventilation at the bases but no convincing evidence for segmental defect. The perfusion imaging is felt to match the ventilation imaging. Some heterogeneous areas of perfusion but no segmental abnormality and no convincing evidence for a mismatch. IMPRESSION: Findings as described above. Some heterogeneous perfusion and ventilation but no evidence for segmental mismatch. Findings would constitute a low probability for pulmonary embolism. Chance of PE 20% or less.
[2017-11-09 18:34] LABS: PTT 74 SEC (25-37)
--- NOTE | 2017-11-09 20:51 | Cons- Cardiology ---
General Information and HPI Consulting Request Date of Consult: 11/09/17 Requested By: Sae BENAVIDEZ,Elida Padilla History of Present Illness: Mr. Esparza is a 77 year old male with history of hypertension, dyslipidemia, diabetes and coronary artery disease s/p [place] in 1996 with subsequent CABG x4. He also carries a history of renal insufficiency. Over the past two days this patient has noted recurrent episodes of moderate chest pressure radiating up toward his neck. The discomfort was associated with shortness of breath and orthopnea and is exacerbated by physical exertion. No nausea, vomiting or diaphoresis. He also denies lightheadedness or palpitations. He does complain of abdominal bloating. Cardiac enzymes are mildly elevated. Bypass grafts consist of a free radial artery graft to the RCA, VERDE graft to the LAD and second diagonal branch and SVG to the obtuse marginal. A stress test in 2015 showed a large fixed inferior and inferolateral defect with a moderate size region of minimal septal ischemia. His last echocardiogram showed an EF of 40-45% with moderate mid to distal anterior and anteroseptal hypokinesis with trace MR and TR. Allergies/Medications Allergies: Coded Allergies: NO KNOWN ALLERGIES (11/09/17) Home Med List: Allopurinol 100 MG TABLET 1 TAB PO DAILY GOUT (Reported) Amlodipine Besylate 10 MG TABLET 1 TAB PO DAILY HEART (Reported) Aspirin (Lite Coat Aspirin) 325 MG TABLET 1 TAB PO DAILY HEART (Reported) Atorvastatin Calcium (Lipitor) 80 MG TABLET 1 TAB PO DAILY CHOLESTEROL ( Reported) Cholecalciferol (Vitamin D3) (Vitamin D-3) 2,000 UNIT TABLET 1 TAB PO DAILY VITAMIN SUPPORT (Reported) Clopidogrel Bisulfate (Clopidogrel) 75 MG TABLET 1 TAB PO DAILY BLOOD THINNER (Reported) Furosemide (Lasix) 40 MG TABLET 1 TAB PO DAILY WATER RETENTION (Reported) Insulin Aspart, Recombinant (Novolog Flexpen) (Unknown Strength) INSULN.PEN ( Unknown Dose) SC TIDAC DIABETES (Reported) Insulin Detemir (Levemir Flextouch) 100 UNIT/ML (3 ML) INSULN.PEN 40 UNITS SC DAILY DIABETES (Reported) Review of Systems Review of Systems: A review of systems is remarkable for abdominal distension. Past History Travel History Traveled to [place] past 21 day No Medical History Neurological: NONE EENT: NONE Cardiovascular: CAD, hypertension, hyperlipidemia, myocardial infarction, CABG x 4 Respiratory: NONE Gastrointestinal: NONE Hepatic: NONE Renal: chronic kidney disease Musculoskeletal: gout, osteoarthritis Psychiatric: NONE Endocrine: diabetes Blood Disorders: anemia Other Medical Hx: cellulitis Surgical History Surgical History: appendectomy Psychosocial History Where Do You Live? Home Primary Language: Austrian Smoking Status: Former Smoker ETOH Use: occasional use Illicit Drug Use: denies illicit drug use Exam & Diagnostic Data Vital Signs and I&O Vital Signs Date Time Temp Pulse Resp B/P B/P Pulse O2 O2 Flow FiO2 Mean Ox Delivery Rate 11/09 2018 Nasal 2.0L Cannula 11/09 1701 90 Nasal 2.0L Cannula 11/09 1700 98.4 93 18 168/82 89 Nasal 2.0L Cannula 11/09 1417 98.2 87 20 167/82 94 Nasal 2.0L Cannula 11/09 1313 77 20 160/77 95 Nasal 2.0L Cannula 11/09 1148 98.0 54 18 169/78 11/09 1100 98.3 66 20 150/69 96 Non 2.0L ReBreather 11/09 0906 98.0 54 18 169/78 93 Room Air Intake & Output 11/09 1600 11/09 0800 11/09 0000 11/08 1600 11/08 0800 11/08 0000 Intake Total Output Total Balance Patient 215 lb Weight Weight Reported by Patient Measurement Method Physical Exam: General: WD/obese male in NAD; alert and oriented x 3 HEENT: NC/AT, PERRL, EOMI Neck: no JVD, no carotid bruit Heart: RRR with 2/6 systolic murmur Lungs: clear bilaterally Abdomen: soft, obese, NT, +ve bowel sounds Extremities: 1+ edema Assessment/Plan Assessment/Plan * This patient has symptoms of unstable angina with likely NSTEMI. I suspect this is due to graft closure considering his 20 year old bypass grafts. We will try to treat this medically, if possible, due to his renal insufficiency. Follow cardiac enzymes until they peak. * Obtain and echocardiogram. * Begin aspirin, Plavix 75mg daily after a 300mg bolus and IV heparin. * Continue a statin. Begin Metoprolol 25mg BID. Add NTG paste 1/2 inch Q 6 hours. Consult Acknowledgment - Thank you for your consult request.
[2017-11-09 22:13] VITALS: BP 158/68
[2017-11-10] VITALS: BP 124/64
[2017-11-10 06:26] VITALS: BP 126/60
[2017-11-10 08:14] LABS: ABSOLUTE BASOPHIL COUNT 0.1 /CUMM (0.0-0.2); ABSOLUTE EOSINOPHIL COUNT 0.1 /CUMM (0.0-0.7); ABSOLUTE GRANULOCYTE CT 8.9 /CUMM (1.4-6.5); ABSOLUTE LYMPH COUNT 1.2 /CUMM (1.2-3.4); ABSOLUTE MONOCYTE COUNT 0.8 /CUMM (0.10-0.60); BASOPHIL % 0.5 % (0.0-2.0); EOSINOPHIL % 0.6 % (0-5); GRANULOCYTE % 81.1 % (42.2-75.2); HEMATOCRIT 36.9 % (42-52); MEAN CORPUSCULAR HGB 30.4 PG (27.0-31.0); MEAN CORPUSCULAR HGB CONC 32.7 G/DL (33.0-37.0); MEAN CORPUSCULAR VOLUME 92.7 FL (80.0-94.0); MEAN PLATELET VOLUME 9.4 FL (7.4-10.4); PLATELET COUNT 276 /CUMM (130-400); RBC DISTRIBUTION WIDTH 15.3 % (11.5-14.5); RED BLOOD CELL CT 3.98 /CUMM (4.70-6.10)
--- NOTE | 2017-11-10 08:14 | PN- Housestaff ---
Livier Reyna MD 11/10/1714: Subjective Follow-up For: -Chest pain -Chronic kidney disease stage IV -Diabetes on insulin -Hypertension -Hyperlipidemia Subjective: Patient seen and examined. He has no complaints and his vitals are stable overnight. He is currently saturating 93% on 2 L. He was tapered to room air and is saturating 93%. No events in the telemetry overnight. Review of Systems Constitutional: Reports: no symptoms. Cardiovascular: Reports: no symptoms. Respiratory: Reports: no symptoms. Gastrointestinal: Reports: no symptoms. Musculoskeletal: Reports: no symptoms. Skin: Reports: no symptoms. Objective Last 24 Hrs of Vital Signs/I&O Vital Signs Date Time Temp Pulse Resp B/P B/P Pulse O2 O2 Flow FiO2 Mean Ox Delivery Rate 11/10 0836 132/88 11/10 0836 132/88 11/10 0800 96 Nasal 2.0L Cannula 11/10 0626 98.0 71 18 126/60 93 Nasal Cannula 11/10 0000 Nasal 2.0L Cannula 11/10 0000 78 20 124/64 Nasal 2.0L Cannula 11/09 2213 98.3 98 18 158/68 94 Nasal Cannula 11/09 2158 90 20 144/60 11/09 2019 Nasal 2.0L Cannula 11/09 1701 90 Nasal 2.0L Cannula 11/09 1700 98.4 93 18 168/82 89 Nasal 2.0L Cannula 11/09 1417 98.2 87 20 167/82 94 Nasal 2.0L Cannula 11/09 1313 77 20 160/77 95 Nasal 2.0L Cannula 11/09 1148 98.0 54 18 169/78 Intake & Output 11/10 1600 11/10 0800 11/10 0000 Intake Total 120 120 Output Total 300 950 Balance -300 -830 120 Intake, Oral 120 120 Output, Urine 300 950 Patient 229 lb 231 lb Weight Weight Bed scale Bed scale Measurement Method Physical Exam General Appearance: Alert, Oriented X3, Cooperative, No Acute Distress HEENT: Atraumatic, EOMI, Mucous Membr. moist/pink Neck: Supple, No JVD Cardiovascular: Regular Rate, Normal S1, Normal S2 Lungs: Clear to Auscultation, Normal Air Movement Abdomen: Normal Bowel Sounds, Soft Extremities: No Clubbing, No Cyanosis, No Edema Current Medications: Current Medications Sig/Elham Start time Last Medication Dose Route Stop Time Status Admin Albuterol Sulfate 3 ML Q4P PRN 11/09 2115 AC INH Allopurinol 100 MG DAILY 11/10 899 AC 11/10 PO 0836 Amlodipine Besylate 10 MG DAILY 11/10 899 AC 11/10 PO 0836 Aspirin 325 MG DAILY 11/10 899 AC 11/10 PO 0836 Atorvastatin Calcium 80 MG DAILY 11/10 899 AC 11/10 PO 0836 Cholecalciferol 1,000 IU DAILY 11/10 899 AC 11/10 PO 0836 Clopidogrel Bisulfate 75 MG DAILY 11/10 899 AC 11/10 PO 0836 Furosemide 40 MG DAILY 11/10 899 AC 11/10 PO 0836 Heparin Sodium 25,000 UNIT Q24H 11/09 1100 AC 11/09 (Porcine) IV 1136 Sodium Chloride 500 ML Insulin Aspart 0 TIDAC 11/10 08 AC 11/10 SC 0836 Insulin Aspart 2 UNITS .STK-MED ONE 11/09 1806 DC SC 11/09 1807 Insulin Detemir 45 UNITS QPM 11/10 2100 AC SC Insulin Detemir 40 UNITS QPM 11/09 2100 DC 11/09 SC 2159 Insulin Human Regular 0 TIDAC 11/09 1700 DC SC Metoprolol Tartrate 25 MG BID 11/09 2200 AC 11/10 PO 0836 Metoprolol Tartrate 0 .STK-MED ONE 11/09 1145 DC IV Nitroglycerin 0.5 GM Q6 11/10 1200 AC TOP Nitroglycerin 0.5 GM Q6 11/09 2359 DC 11/10 TOP 0612 Last 24 Hrs of Lab/Edmund Results Last 24 Hrs of Labs/Mics: Laboratory Tests 11/10/17 0634: Anion Gap 10, Estimated GFR 25 L, BUN/Creatinine Ratio 20.0, Triglycerides 135, Cholesterol 178, LDL Cholesterol, Calc 104, HDL Cholesterol 47, Cholesterol/HDL Ratio 4, APTT 65 H, CBC w Diff NO MAN DIFF REQ, RBC 3.98 L, MCV 92.7, MCH 30.4 , MCHC 32.7 L, RDW 15.3 H, MPV 9.4, Gran % 81.1 H, Lymphocytes % 10.7 L, Monocytes % 7.1, Eosinophils % 0.6, Basophils % 0.5, Absolute Granulocytes 8.9 H, Absolute Lymphocytes 1.2, Absolute Monocytes 0.8 H, Absolute Eosinophils 0.1 , Absolute Basophils 0.1 11/09/17 2120: Troponin I 0.50 *H 11/09/17 1735: APTT 74 H 11/09/17 1725: Urinalysis LIGHT H, Urine Color STRAW, Urine Clarity CLEAR, Urine pH 6.0, Ur Specific [place] 1.025, Urine Protein 100 H, Urine Ketones TRACE H, Urine Nitrite NEG, Urine Bilirubin NEG, Urine Urobilinogen 0.2, Ur Leukocyte Esterase NEG, Ur Microscopic SEDIMENT EXAMINED, Urine RBC 1-3, Urine WBC 1-3 H, Urine Bacteria FEW H, Urine Hemoglobin NEG, Urine Glucose 250 H 11/09/17 1601: Troponin I 0.63 *H 11/09/17 1458: Troponin I 0.79 *H 11/09/17 1326: Hemoglobin A1c Cancelled Assessment/Plan Assessment: This is a 77-year-old male with the past medical history significant for hypertension, hyperlipidemia, chronic kidney disease, coronary artery disease status post [place] with 4 vessel CABG 20 years ago on Plavix and aspirin, diabetes on insulin, CKD stage IV, that presents with chest pain of 2 days duration. The pain is atypical for an acute coronary syndrome and worsens on inspiration, palpation. He also endorses some mild dyspnea and a nonproductive cough. The patient has also noted increased abdominal swelling and feeling like "a rock is in my stomach". The patient has lost about 40 pounds in the past year secondary to diet changes. The patient recently took a car trip from [place] 3 days ago ( in a span of 2 days). Does endorse frequent stops but regardless was immobile for quite some time. In the ED, vitals were temperature 98, heart rate 54, respiratory rate 18, blood pressure 116/78, 93% oxygen saturation on room air. His EKG showed a rate of 114 Q waves in lead III unchanged from prior, questionable T-wave inversion in V4 through V6 as well as lead I and aVL with PVCs. WBC count was 13.4, hemoglobin 13, BUN 45, creatinine 2.1 at baseline, d-dimer negative, magnesium normal, LFTs normal, lipase normal, troponin of 0.81, proBNP of 7300. CT scan of the abdomen and pelvis as well as chest showed small bilateral pleural effusions with severe coronary artery calcifications and moderate to severe vascular calcifications. The patient was given nitroglycerin, 2 mg of morphine which helped to bring the pain down from a 5 to a 1 on a scale of 10. The patient was guaiac and was negative, subsequently started on heparin as per the instruction of Dr. Romeo. Assessment -Chest pain secondary to ACS in the setting of coronary artery disease versus pulmonary embolism in the setting of recent long road trip versus gastroenterologic issue with accompanying abdominal bloating as well as increased belching -Chronic kidney disease stage IV -Diabetes on insulin -Hypertension -Hyperlipidemia Plan -Continue to monitor patient in telemetry -Repeat EKG and troponins have shown no change in the EKG and decrease of the troponin from 0.81 to .5 -As per cardiac recommendations patient should be continued on 25 mg of twice daily metoprolol and Nitropaste, continued aspirin and Plavix with a heparin drip. -Although d-dimer is negative, we did VQ scan as patient does have EKG changes as well as increased chest pain on inspiration in the setting of recent long road trip. VQ scan showed low probability of PE. -Echocardiogram has been ordered and is pending -Monitor I's and O's -Continue patient's home medications -Accu-Cheks, sliding scale insulin low-dose, can be increased to medium dose. Of note his hemoglobin A1c was found to be 10.5 and we will increase his Levemir home dose from 40 units to 45 units. -Lipid panel and thyroid function tests normal DVT prophylaxis with heparin Heart healthy diet Patient is full code Problem List: 1. NSTEMI (non-ST elevated myocardial infarction) Pain Ratin Pain Location: na Pain Goal: Remain pain free Pain Plan: na Tomorrow's Labs & Rationales: Elida Bucio MD 11/10/17 1005: Attending MD Review Statement Attending Statement Attending MD Statement: examined this patient, discuss w/resident/PA/STERILIZATION TECH, agreed w/resident/PA/STERILIZATION TECH, reviewed EMR data (avail), discussed with nursing, discussed with case mgmt, reviewed images Attending Assessment/Plan: 77-year-old male past medical history of coronary artery disease, bypass 20 years ago, diabetes with insulin with a hemoglobin A1c of 10 suggestive of uncontrolled hyperglycemia who is here with chest pain. I spoke to the straddle truck driver and given his CKD with his GFR of less than 30 the plan is to maximize medical treatment. He stays on the aspirin and Plavix and we are going to keep him on a heparin for 48 hours. Will get an echocardiogram. Because of the high hemoglobin A1c will increase his Levemir. His VQ was low probability of PE and will follow closely.
[2017-11-10 08:19] LABS: PTT 65 SEC (25-37)
[2017-11-10] MEDS ORDERED: LEVEMIR100 UNIT/1 SC (11:01)
[2017-11-10] MEDS ORDERED: METOPROLOL TART25 M1 PO (11:01)
--- NOTE | 2017-11-10 11:07 | Patient Discharge Instructions ---
Discharge Instructions General Discharge Information You were seen/treated for: ACUTE CORONARY SYNDROME Special Instructions: 1. PLEASE FOLLOW UP WITH PCP IN ONE WEEK 2. PLEASE FOLLOW UP WITH YOUR MOTOR GRADER ROUGH [employer]ADE DR. DUBON IN ONE WEEK 3. PLEASE FOLLOW UP WITH [facility] IN DR. ATKINS IN 1-2 WEEKS Diet Continue normal diet: Yes Recommended Diet: Heart Healthy, Low Fat Activity Full Activity/No Limits: Yes Acute Coronary Syndrome Inclusion Criteria At DC or during hospital stay patient has or had the following: ACS DIAGNOSIS Yes Discharge Core Measures Meds if any: Prescribed or Continued at Discharge Meds if any: NOT Prescribed or Continued at Discharge Congestive Heart Failure Inclusion Criteria At DC or during hospital stay patient has or had the following: CHF DIAGNOSIS No Discharge Core Measures Meds if any: Prescribed or Continued at Discharge Meds if any: NOT Prescribed or Continued at Discharge Cerebrovascular accident Inclusion Criteria At DC or during hospital stay patient has or had the following: CVA/TIA Diagnosis No Discharge Core Measures Meds if any: Prescribed or Continued at Discharge Meds if any: NOT Prescribed or Continued at Discharge Venous thromboembolism Inclusion Criteria VTE Diagnosis No VTE Type NONE VTE Confirmed by (Test) NONE Discharge Core Measures - Per Current guidelines, there needs to be overlap - treatment for the first 5 days of Warfarin therapy. - If discharged on Warfarin prior to 5 days of - overlap therapy, the patient will need to be - assessed for post discharge needs including - *Post discharge parental anticoagulation - *Warfarin and/or parental anticoagulation education - *Follow up date to check INR post discharge At least 5 days overlap therapy as Inpatient No Meds if any: Prescribed or Continued at Discharge Note: Overlap Therapy is Warfarin and Anticoagulant Meds if any: NOT Prescribed or Continued at Discharge
[2017-11-10 14:43] VITALS: BP 134/60
--- NOTE | 2017-11-10 17:47 | PN- Cardiology ---
Subjective Subjective: * Chest discomfort has abated. Mild shortness of breath persists. * Cardiac enzymes are trending down. * creatinine increased to 2.5 Objective Vital Signs and I&Os Vital Signs Date Time Temp Pulse Resp B/P B/P Pulse O2 O2 Flow FiO2 Mean Ox Delivery Rate 11/10 1443 97.6 79 24 134/60 89 Room Air 11/10 1419 95 Room Air 11/10 0836 132/88 11/10 0836 132/88 11/10 0800 96 Nasal 2.0L Cannula 11/10 0626 98.0 71 18 126/60 93 Nasal Cannula 11/10 0000 Nasal 2.0L Cannula 11/10 0000 78 20 124/64 Nasal 2.0L Cannula 11/09 2213 98.3 98 18 158/68 94 Nasal Cannula 11/09 2158 90 20 144/60 11/09 2019 Nasal 2.0L Cannula Intake & Output 11/10 1600 11/10 0800 11/10 0000 11/09 1600 11/09 0800 11/09 0000 Intake Total 120 120 Output Total 575 950 Balance -575 -830 120 Intake, Oral 120 120 Output, Urine 575 950 Patient 229 lb 231 lb 215 lb Weight Weight Bed scale Bed scale Reported by Patient Measurement Method Physical Exam: General: WD/obese male in NAD; alert and oriented x 3 HEENT: NC/AT, PERRL, EOMI Neck: no JVD, no carotid bruit Heart: RRR with 2/6 systolic murmur Lungs: clear bilaterally with decreased breath sounds at bases Abdomen: soft, obese, NT, +ve bowel sounds Extremities: no edema Assessment/Plan Assessment/Plan * This patient has symptoms of unstable angina with likely NSTEMI. I suspect this is due to graft closure considering his 20 year old bypass grafts. We will try to treat this medically, if possible, due to his renal insufficiency. * Obtain an echocardiogram. * Continue aspirin, Plavix 75mg daily and IV heparin. * Continue a statin. Begin Metoprolol 25mg BID. Add NTG paste 1/2 inch Q 6 hours. * Continue Lasix for another day with careful monitoring of his BUN, creatinine and potassium. Continue telemetry? Yes
[2017-11-10 19:48] LABS: PTT 64 SEC (25-37)
[2017-11-10 21:19] VITALS: BP 150/82
[2017-11-11 06:40] VITALS: BP 144/60
--- NOTE | 2017-11-11 08:00 | PN- Housestaff ---
Livier Reyna MD 11/11/17 08: Subjective Follow-up For: -Chest pain -Chronic kidney disease stage IV -Diabetes on insulin -Hypertension -Hyperlipidemia Subjective: Patient has no complaints. Contiues to be on oxygen even though he is not on it at home. Yesterday was tried on room air but sat went down to 87%. Patient has expiratory wheezing on auscultation but no cough or shortness of breath. Review of Systems Constitutional: Reports: no symptoms. Cardiovascular: Reports: no symptoms. Respiratory: Reports: no symptoms. Gastrointestinal: Reports: no symptoms. Musculoskeletal: Reports: no symptoms. Skin: Reports: no symptoms. Objective Last 24 Hrs of Vital Signs/I&O Vital Signs Date Time Temp Pulse Resp B/P B/P Pulse O2 O2 Flow FiO2 Mean Ox Delivery Rate 11/12 799 Nasal 1.0L Cannula 11/11 075 85 152/64 11/11 0756 85 152/64 11/11 0640 98.0 85 22 144/60 91 Nasal 1.0L Cannula 11/10 2118 90 Nasal 1.0L Cannula 11/10 2118 99.0 98 16 150/82 90 Nasal 1.0L Cannula 11/10 2113 98 150/82 11/10 1443 97.6 79 24 134/60 89 Room Air 11/10 1419 95 Room Air Intake & Output 11/11 1600 11/11 0000 Intake Total 70 Output Total 500 200 Balance -500 -130 Intake, IV 70 Output, Urine 500 200 Physical Exam General Appearance: Alert, Oriented X3, Cooperative, No Acute Distress Skin Temp/Moisture Exam: Warm/Dry HEENT: Atraumatic, PERRLA, EOMI, Mucous Membr. moist/pink Cardiovascular: Regular Rate, Normal S1, Normal S2 Lungs: expiratory wheezing mildy throughout Abdomen: No Tenderness Extremities: No Edema Current Medications: Current Medications Sig/Elham Start time Last Medication Dose Route Stop Time Status Admin Albuterol Sulfate 3 ML Q4P PRN 11/09 2114 DC INH Allopurinol 100 MG DAILY 11/10 899 AC 11/11 PO 0754 Amlodipine Besylate 10 MG DAILY 11/10 899 AC 11/11 PO 0756 Aspirin 325 MG DAILY 11/10 899 AC 11/11 PO 0757 Atorvastatin Calcium 80 MG DAILY 11/10 899 AC 11/11 PO 0756 Cholecalciferol 1,000 IU DAILY 11/10 09 AC 11/11 PO 0754 Clopidogrel Bisulfate 75 MG DAILY 11/10 899 AC 11/11 PO 0756 Furosemide 40 MG DAILY 11/10 09 AC 11/11 PO 0756 Heparin Sodium 3,114 UNIT ONCE ONE 11/11 0830 DC 11/11 (Porcine) IV 11/11 0831 0840 Heparin Sodium 25,000 UNIT Q24H 11/09 1100 AC 11/11 (Porcine) IV 1040 Sodium Chloride 500 ML Insulin Aspart 0 TIDAC 11/10 0800 11/10 [place] 1731 Insulin Detemir 45 UNITS QPM 11/10 2100 11/10 [place] 2114 Metoprolol Tartrate 25 MG BID 11/09 2200 AC 11/11 PO 0756 Nitroglycerin 0.5 GM Q6 11/10 1200 11/11 [facility]43 Patient Medication 1 ED ONE ONE 11/10 1430 [place] Teaching ED 11/10 1431 Patient Medication 1 ED ONE ONE 11/10 1430 RI Teaching ED 11/10 1431 Last 24 Hrs of Lab/Edmund Results Last 24 Hrs of Labs/Mics: Laboratory Tests 11/11/17 0629: Anion Gap 10, Estimated GFR 25 L, BUN/Creatinine Ratio 20.8, APTT 49 H 11/10/17 1831: APTT 64 H Assessment/Plan Assessment: This is a 77-year-old male with the past medical history significant for hypertension, hyperlipidemia, chronic kidney disease, coronary artery disease status post [place] with 4 vessel CABG 20 years ago on Plavix and aspirin, diabetes on insulin, CKD stage IV, that presents with chest pain of 2 days duration. The pain is atypical for an acute coronary syndrome and worsens on inspiration, palpation. He also endorses some mild dyspnea and a nonproductive cough. The patient has also noted increased abdominal swelling and feeling like "a rock is in my stomach". The patient has lost about 40 pounds in the past year secondary to diet changes. The patient recently took a car trip from [place] 3 days ago ( in a span of 2 days). Does endorse frequent stops but regardless was immobile for quite some time. In the ED, vitals were temperature 98, heart rate 54, respiratory rate 18, blood pressure 116/78, 93% oxygen saturation on room air. His EKG showed a rate of 114 Q waves in lead III unchanged from prior, questionable T-wave inversion in V4 through V6 as well as lead I and aVL with PVCs. WBC count was 13.4, hemoglobin 13, BUN 45, creatinine 2.1 at baseline, d-dimer negative, magnesium normal, LFTs normal, lipase normal, troponin of 0.81, proBNP of 7300. CT scan of the abdomen and pelvis as well as chest showed small bilateral pleural effusions with severe coronary artery calcifications and moderate to severe vascular calcifications. The patient was given nitroglycerin, 2 mg of morphine which helped to bring the pain down from a 5 to a 1 on a scale of 10. The patient was guaiac and was negative, subsequently started on heparin as per the instruction of Dr. Romeo. Assessment -Chest pain secondary to ACS in the setting of coronary artery disease versus pulmonary embolism in the setting of recent long road trip versus gastroenterologic issue with accompanying abdominal bloating as well as increased belching -Chronic kidney disease stage IV -Diabetes on insulin -Hypertension -Hyperlipidemia Plan -Continue to monitor patient in telemetry -Repeat EKG and troponins have shown no change in the EKG and decrease of the troponin from 0.81 to .5 -As per cardiac recommendations patient should be continued on 25 mg of twice daily metoprolol and Nitropaste, continued aspirin and Plavix with a heparin drip for now. -Although d-dimer is negative, we did VQ scan as patient does have EKG changes as well as increased chest pain on inspiration in the setting of recent long road trip. VQ scan showed low probability of PE. -Patient has expiratory wheezing and increaed oxygen demand, no o2 at baseline. we ordered pulm consult for the patient and chest xray to evaluate for any change in fluid status. -Echocardiogram has been ordered and is pending -Monitor I's and O's -Continue patient's home medications -Accu-Cheks, sliding scale insulin low-dose, can be increased to medium dose. Of note his hemoglobin A1c was found to be 10.5 and we will increase his Levemir home dose from 40 units to 45 units. -Lipid panel and thyroid function tests normal DVT prophylaxis with heparin Heart healthy diet Patient is full code Problem List: 1. NSTEMI (non-ST elevated myocardial infarction) Pain Ratin Pain Location: na Pain Goal: Remain pain free Pain Plan: na Tomorrow's Labs & Rationales: na D'Hernandez MD,Elida 11/11/17 1052: Attending MD Review Statement Attending Statement Attending MD Statement: examined this patient, discuss w/resident/PA/BOTTOM CEMENTER, agreed w/resident/PA/BOTTOM CEMENTER, reviewed EMR data (avail), discussed with nursing, discussed with case mgmt Attending Assessment/Plan: Patient feels well. Overnight he desaturated to 87% and needed oxygen. He does not appear to be clinically in CHF and his echo is pending. He is a 77-year-old male with a past medical history of diabetes on insulin clearly uncontrolled with a hemoglobin A1c of 10, previous CAD and bypass who is here for what we think is a non-ST elevation ND with occluded grafts that were treating medically. Will follow up on the results of the echo. I am concerned about the hypoxemia will get a chest x-ray and a pulmonary consult and follow closely.
[2017-11-11 08:18] LABS: PTT 49 SEC (25-37)
[2017-11-11] MEDS ORDERED: LEVEMIR100 UNIT/1 SC (11:40)
--- NOTE | 2017-11-11 13:55 | RADIOLOGY REPORT ---
EXAMINATION: XR CHEST CLINICAL INFORMATION: Fluid overload. Continued oxygen requirement. COMPARISON: 06/07/2017 TECHNIQUE: 2 views of the chest were obtained. FINDINGS: Increased interstitial lung markings. Linear opacities at the left lung base. Pulmonary vascular congestion. Gina B lines. Small bilateral pleural effusions. No evidence of pneumothorax bilaterally. No lobar consolidation. Heart size is within normal limits. Status post coronary artery bypass grafting. The inferior-most median sternotomy wire is broken, similar to the prior study. Atherosclerosis thoracic aorta. Degenerative changes of the spine. IMPRESSION: The constellation of findings is most consistent with congestive heart failure exacerbation. No evidence of florid pulmonary edema although there is increased interstitial markings consistent with interstitial edema as well as small bilateral pleural effusions.
--- NOTE | 2017-11-11 13:57 | Cons- Pulmonary ---
General Information and HPI Consulting Request Date of Consult: 11/11/17 Requested By: MED TEAM History of Present Illness: Mr. Esparza is a 77 year old male with history of hypertension, dyslipidemia, diabetes and coronary artery disease s/p OK in 1996 with subsequent CABG x4. He also carries a history of renal insufficiency. Over the past two days this patient has noted recurrent episodes of moderate chest pressure radiating up toward his neck. The discomfort was associated with shortness of breath and orthopnea and is exacerbated by physical exertion. No nausea, vomiting or diaphoresis. He also denies lightheadedness or palpitations. He does complain of abdominal bloating. Cardiac enzymes are mildly elevated. He does have significant ischemic heart disease with low ejection fraction. He did work in [employer] and has had exposure to asbestos. He is a remote smoker quit in the 60s. Never had any significant COPD or wheezing before. No significant loss of weight. His CT scan of the chest was reviewed and as noted below. Review of Systems Constitutional: Reports: no symptoms. EENTM: Reports: no symptoms. Cardiovascular: Reports: chest pain. Respiratory: Reports: cough, short of breath. GI: Reports: bloating. Genitourinary: Reports: no symptoms. Musculoskeletal: Reports: no symptoms. Skin: Reports: no symptoms. Neurological/Psychological: Reports: no symptoms. Hematologic/Endocrine: Reports: no symptoms. Allergies/Medications Allergies: Coded Allergies: NO KNOWN ALLERGIES (11/09/17) Home Med List: Allopurinol 100 MG TABLET 1 TAB PO DAILY GOUT (Reported) Amlodipine Besylate 10 MG TABLET 1 TAB PO DAILY HEART (Reported) Aspirin (Lite Coat Aspirin) 325 MG TABLET 1 TAB PO DAILY HEART (Reported) Atorvastatin Calcium (Lipitor) 80 MG TABLET 1 TAB PO DAILY CHOLESTEROL ( Reported) Cholecalciferol (Vitamin D3) (Vitamin D-3) 2,000 UNIT TABLET 1 TAB PO DAILY VITAMIN SUPPORT (Reported) Clopidogrel Bisulfate (Clopidogrel) 75 MG TABLET 1 TAB PO DAILY BLOOD THINNER (Reported) Furosemide (Lasix) 40 MG TABLET 1 TAB PO DAILY WATER RETENTION (Reported) Insulin Aspart, Recombinant (Novolog Flexpen) (Unknown Strength) INSULN.PEN ( Unknown Dose) SC TIDAC DIABETES (Reported) Insulin Detemir (Levemir Flextouch) 100 UNIT/ML (3 ML) INSULN.PEN 40 UNITS SC DAILY DIABETES (Reported) Insulin Detemir (Levemir) 100 UNIT/ML VIAL 45 UNITS SC QPM DIABETES . Metoprolol Tartrate 25 MG TABLET 25 MG PO BID HEART DISEASE Review of Systems Review of Systems Constitutional: Reports: see HPI. Past History Travel History Traveled to [place] past 21 day No Medical History Neurological: NONE EENT: NONE Cardiovascular: CAD, hypertension, hyperlipidemia, myocardial infarction, CABG x 4 Respiratory: NONE Gastrointestinal: NONE Hepatic: NONE Renal: chronic kidney disease Musculoskeletal: gout, osteoarthritis Psychiatric: NONE Endocrine: diabetes Blood Disorders: anemia Other Medical Hx: cellulitis Surgical History Surgical History: appendectomy Psychosocial History Where Do You Live? Home Primary Language: Welsh Smoking Status: Former Smoker ETOH Use: occasional use Illicit Drug Use: denies illicit drug use Exam & Diagnostic Data Last 24 Hrs of Vital Signs/I&O Vital Signs Date Time Temp Pulse Resp B/P B/P Pulse O2 O2 Flow FiO2 Mean Ox Delivery Rate 11/11 0800 Nasal 1.0L Cannula 11/11 0756 85 152/64 11/11 0756 85 152/64 11/11 0640 98.0 85 22 144/60 91 Nasal 1.0L Cannula 11/10 2118 90 Nasal 1.0L Cannula 11/10 2118 99.0 98 16 150/82 90 Nasal 1.0L Cannula 11/10 2114 98 150/82 11/10 1443 97.6 79 24 134/60 89 Room Air 11/10 1419 95 Room Air Intake & Output 11/11 1600 11/11 0800 11/11 0000 Intake Total 70 Output Total 500 200 Balance -500 -130 Intake, IV 70 Output, Urine 500 200 Last 48 Hrs of Labs/Edmund: Laboratory Tests 11/11/17 0629: Anion Gap 10, Estimated GFR 25 L, BUN/Creatinine Ratio 20.8, APTT 49 H 11/10/17 1831: APTT 64 H 11/10/17 0634: Anion Gap 10, Estimated GFR 25 L, BUN/Creatinine Ratio 20.0, Triglycerides 135, Cholesterol 178, LDL Cholesterol, Calc 104, HDL Cholesterol 47, Cholesterol/HDL Ratio 4, APTT 65 H, CBC w Diff NO MAN DIFF REQ, RBC 3.98 L, MCV 92.7, MCH 30.4 , MCHC 32.7 L, RDW 15.3 H, MPV 9.4, Gran % 81.1 H, Lymphocytes % 10.7 L, Monocytes % 7.1, Eosinophils % 0.6, Basophils % 0.5, Absolute Granulocytes 8.9 H, Absolute Lymphocytes 1.2, Absolute Monocytes 0.8 H, Absolute Eosinophils 0.1 , Absolute Basophils 0.1 11/09/17 2120: Troponin I 0.50 *H 11/09/17 1735: APTT 74 H 11/09/17 1725: Urinalysis LIGHT H, Urine Color STRAW, Urine Clarity CLEAR, Urine pH 6.0, Ur Specific Pimento 1.025, Urine Protein 100 H, Urine Ketones TRACE H, Urine Nitrite NEG, Urine Bilirubin NEG, Urine Urobilinogen 0.2, Ur Leukocyte Esterase NEG, Ur Microscopic SEDIMENT EXAMINED, Urine RBC 1-3, Urine WBC 1-3 H, Urine Bacteria FEW H, Urine Hemoglobin NEG, Urine Glucose 250 H 11/09/17 1601: Troponin I 0.63 *H 11/09/17 1458: Troponin I 0.79 *H Assessment/Plan Impression/Plan: IMPRESSION: CT scan of the chest: 1. Small bilateral simple appearing pleural effusions are seen. Associated calcified pleural plaques are noted. Findings may be related to asbestos exposure. Clinical correlation requested. 2. Lung parenchymal detail limited due to motion artifact. There appear to be scattered areas of atelectasis or scarring, most prominent in both lower lobes with associated mild traction bronchiectasis. No definite superimposed focal pneumonia noted. 3. Severe coronary artery calcifications and moderate to severe other vascular calcifications. VQ scan IMPRESSION: Findings as described above. Some heterogeneous perfusion and ventilation but no evidence for segmental mismatch. Findings would constitute a low probability for pulmonary embolism. General Appearance Alert, Oriented X3, Cooperative, No Acute Distress Skin No Rashes, No Breakdown, No Significant Lesion Skin Temp/Moisture Exam: Warm/Dry HEENT Atraumatic, PERRLA, EOMI, Mucous Membr. moist/pink Cardiovascular Regular Rate, Normal S1, Normal S2, grade 2 systolic murmurs Lungs mild crackles, no rhonchi or wheezing Abdomen Normal Bowel Sounds, Soft, No Tenderness Neurological Normal Speech Extremities No Clubbing, No Cyanosis, trace edema This is a 77-year-old male with the past medical history significant for hypertension, hyperlipidemia, chronic kidney disease, coronary artery disease status post OK with 4 vessel CABG 20 years ago on Plavix and aspirin, diabetes on insulin, CKD stage IV, that presents with chest pain of 2 days duration, it appears that he has had non-ST segment elevation OK, radiological findings clinical findings suggestive of systolic heart failure now on diuresis. Patient is now anticoagulated and on dual antiplatelet therapy. Issues include * Hypoxemia mainly related to systolic heart failure with mild bilateral pleural effusion slowly improving * Bilateral pleural plaques related to asbestos exposure. No clinical evidence suggestive of significant interstitial lung disease however he does have mild chronic atelectasis and mild bronchiectasis which could be early pulmonary fibrosis. This needs to be evaluated with full pulmonary function test and DLCO in the future * No evidence suggestive of COPD * Ischemic heart disease with low ejection fraction, previous CABG, now with non -ST segment elevation OK board echo pending * Chronic kidney disease stage III * Diabetes, hypertension, hyperlipidemia on appropriate medication RECOMMENDATION * Continue current medication * As needed nebulizer therapy only if he is wheezing. Patient is not wheezing so can hold off * Okay to continue beta-savi * Diuresis ongoing per cardiology. If he gets worse and if he has worsening pulmonary edema and might need an intravenous dose * Anticoagulation, dual antiplatelet therapy etc. per cardiology * Probably can reduce aspirin to 81 mg he is now on triple therapy with heparin as well * Consider proton pump inhibitor for a short period * Patient is stable pulmonary cortez. If he continues to be hypoxemic he might need oxygen temporarily for his heart failure and pleural effusion. At this time he seems to be doing well. He can be discharged when able with O2 sat more than 90% at rest and if his oxygen saturation upon exertion is more than 85 on room air he can go home without oxygen. We will follow as needed patient was advised to follow-up with me as outpatient to complete his pulmonary workup Consult Acknowledgment - Thank you for your consult request.
[2017-11-11 15:03] VITALS: BP 134/70
[2017-11-11 16:04] LABS: PTT 46 SEC (25-37)
--- NOTE | 2017-11-11 17:16 | PN- Cardiology ---
Subjective Subjective: * Breathing is much improved and almost to baseline. He ambulated without chest pain. * atrial fibrillation with controlled heart rate. * creatinine stable at 2.5 Objective Vital Signs and I&Os Vital Signs Date Time Temp Pulse Resp B/P B/P Pulse O2 O2 Flow FiO2 Mean Ox Delivery Rate 11/11 1503 97.7 79 22 134/70 93 Room Air 11/11 0800 Nasal 1.0L Cannula 11/11 0756 85 152/64 11/11 0756 85 152/64 11/11 0640 98.0 85 22 144/60 91 Nasal 1.0L Cannula 11/10 2118 90 Nasal 1.0L Cannula 11/10 2118 99.0 98 16 150/82 90 Nasal 1.0L Cannula 11/10 2113 98 150/82 Intake & Output 11/11 1600 11/11 0800 11/11 0000 11/10 1600 11/10 0800 11/10 0000 Intake Total 208 70 120 120 Output Total 500 200 575 950 Balance 208 -500 -130 -575 -830 120 Intake, IV 208 70 Intake, Oral 120 120 Number 1 Bowel Movements Output, Urine 500 200 575 950 Patient 229 lb 231 lb Weight Weight Bed scale Bed scale Measurement Method Physical Exam: General: WD/obese male in NAD; alert and oriented x 3 HEENT: NC/AT, PERRL, EOMI Neck: no JVD, no carotid bruit Heart: regular with ectopy with 2/6 systolic murmur Lungs: clear bilaterally with decreased breath sounds at bases Abdomen: soft, obese, NT, +ve bowel sounds Extremities: no edema Assessment/Plan Assessment/Plan * This patient had symptoms of unstable angina with likely NSTEMI. I suspect this was due to graft closure considering his 20 year old bypass grafts. We will try to treat this medically, if possible, due to his renal insufficiency. * Obtain an echocardiogram. * Continue aspirin, Plavix 75mg daily. Stop IV heparin. * Continue a statin, Metoprolol 25mg BID, NTG paste 1/2 inch Q 6 hours. * Continue Lasix at 40mg daily with careful monitoring of his BUN, creatinine and potassium. * Anticipate discharge tomorrow if feeling well. Continue telemetry? Yes
[2017-11-11 21:02] VITALS: BP 156/82
[2017-11-11 23:38] LABS: PTT > 120 SEC (25-37)
[2017-11-12 06:56] VITALS: BP 150/70
[2017-11-12 07:59] VITALS: BP 150/70
--- NOTE | 2017-11-12 08:23 | PN- Housestaff ---
See Addendum Subjective Follow-up For: -Chest pain -Chronic kidney disease stage IV -Diabetes on insulin -Hypertension -Hyperlipidemia Subjective: Patient feels good no complaints. Vitals are stable overnight. Patient was found to desaturate on ambulation and require O2 at rest yesterday, was able to be tapered and is now on room air satting at 91-93 percent O2 sat Review of Systems Constitutional: Reports: no symptoms. Cardiovascular: Reports: no symptoms. Respiratory: Reports: no symptoms. Gastrointestinal: Reports: no symptoms. Musculoskeletal: Reports: no symptoms. Skin: Reports: no symptoms. Objective Last 24 Hrs of Vital Signs/I&O Vital Signs Date Time Temp Pulse Resp B/P B/P Pulse O2 O2 Flow FiO2 Mean Ox Delivery Rate 11/12 0759 90 150/70 11/12 0759 90 150/70 11/12 0656 98.5 90 22 150/70 93 Room Air 11/11 2102 98.6 96 22 156/82 91 Room Air 11/11 2055 91 Room Air 11/11 2052 88 156/82 11/11 1503 97.7 79 22 134/70 93 Room Air Intake & Output 11/12 1600 11/12 0800 11/12 0000 Intake Total 140 93 Output Total 600 Balance -460 93 Intake, IV 140 93 Output, Urine 600 Patient 231 lb Weight Weight Bed scale Measurement Method Physical Exam General Appearance: Alert, Oriented X3, Cooperative, No Acute Distress Skin: No Rashes, No Breakdown, No Significant Lesion Skin Temp/Moisture Exam: Warm/Dry Sepsis Skin Exam (color): Normal for Ethnicity HEENT: Atraumatic, EOMI, Mucous Membr. moist/pink Cardiovascular: Regular Rate, Normal S1, Normal S2 Lungs: Clear to Auscultation, Normal Air Movement Abdomen: Normal Bowel Sounds, Soft, No Tenderness Neurological: Normal Speech Extremities: No Clubbing, No Cyanosis, No Edema Current Medications: Current Medications Sig/Elham Start time Last Medication Dose Route Stop Time Status Admin Allopurinol 100 MG DAILY 11/10 899 AC 11/12 PO 0758 Amlodipine Besylate 10 MG DAILY 11/10 899 AC 11/12 PO 0759 Aspirin 81 MG DAILY 11/12 899 AC 11/12 PO 0759 Aspirin 325 MG DAILY 11/10 899 DC 11/11 PO 0757 Atorvastatin Calcium 80 MG DAILY 11/10 899 AC 11/12 PO 0759 Cholecalciferol 1,000 IU DAILY 11/10 0900 AC 11/12 PO 0758 Clopidogrel Bisulfate 75 MG DAILY 11/10 09 AC 11/12 PO 0758 Furosemide 40 MG DAILY 11/10 09 AC 11/12 PO 0759 Heparin Sodium 3,114 UNIT ONE ONE 11/11 1644 DC 11/11 (Porcine) IV 11/11 1645 1731 Heparin Sodium 25,000 UNIT Q24H 11/09 1100 DC 11/12 (Porcine) IV 0758 Sodium Chloride 500 ML Insulin Aspart 0 TIDAC 11/10 08 AC 11/11 SC 1651 Insulin Detemir 45 UNITS QPM 11/10 2100 AC 11/11 SC 2051 Metoprolol Tartrate 25 MG BID 11/09 2200 AC 11/12 PO 0759 Nitroglycerin 0.5 GM Q6 11/10 1200 AC 11/12 TOP 0552 Omeprazole 20 MG DAILY AC 11/11 1620 AC 11/12 PO 0552 Patient Medication 1 ED ONE ONE 11/11 1515 DC 11/11 Teaching ED 11/11 1516 1539 Last 24 Hrs of Lab/Edmund Results Last 24 Hrs of Labs/Mics: Laboratory Tests 11/12/17 1030: APTT Cancelled 11/12/17 0619: Anion Gap 9, Estimated GFR 24 L, BUN/Creatinine Ratio 21.5, APTT 49 H 11/11/17 2240: APTT > 120 *H 11/11/17 1450: APTT 46 H Assessment/Plan Assessment: This is a 77-year-old male with the past medical history significant for hypertension, hyperlipidemia, chronic kidney disease, coronary artery disease status post [place] with 4 vessel CABG 20 years ago on Plavix and aspirin, diabetes on insulin, CKD stage IV, that presents with chest pain of 2 days duration. The pain is atypical for an acute coronary syndrome and worsens on inspiration, palpation. He also endorses some mild dyspnea and a nonproductive cough. The patient has also noted increased abdominal swelling and feeling like "a rock is in my stomach". The patient has lost about 40 pounds in the past year secondary to diet changes. The patient recently took a car trip from [place] 3 days ago ( in a span of 2 days). Does endorse frequent stops but regardless was immobile for quite some time. In the ED, vitals were temperature 98, heart rate 54, respiratory rate 18, blood pressure 116/78, 93% oxygen saturation on room air. His EKG showed a rate of 114 Q waves in lead III unchanged from prior, questionable T-wave inversion in V4 through V6 as well as lead I and aVL with PVCs. WBC count was 13.4, hemoglobin 13, BUN 45, creatinine 2.1 at baseline, d-dimer negative, magnesium normal, LFTs normal, lipase normal, troponin of 0.81, proBNP of 7300. CT scan of the abdomen and pelvis as well as chest showed small bilateral pleural effusions with severe coronary artery calcifications and moderate to severe vascular calcifications. The patient was given nitroglycerin, 2 mg of morphine which helped to bring the pain down from a 5 to a 1 on a scale of 10. The patient was guaiac and was negative, subsequently started on heparin as per the instruction of Dr. Romeo. Assessment -Chest pain secondary to ACS in the setting of coronary artery disease versus pulmonary embolism in the setting of recent long road trip versus gastroenterologic issue with accompanying abdominal bloating as well as increased belching -Chronic kidney disease stage IV -Diabetes on insulin -Hypertension -Hyperlipidemia Plan -Continue to monitor patient in telemetry, patient likely to be discharged today. -Repeat EKG and troponins have shown no change in the EKG and decrease of the troponin from 0.81 to .5 -As per cardiac recommendations patient should be continued on 25 mg of twice daily metoprolol and Nitropaste, continued aspirin and Plavix. As per Dr. Hermosillo , ASA can be decreased to 81 mg. Heparin drip stopped. -Although d-dimer is negative, we did VQ scan as patient does have EKG changes as well as increased chest pain on inspiration in the setting of recent long road trip. VQ scan showed low probability of PE. -Patient has expiratory wheezing and increaed oxygen demand, no o2 at baseline, that has normalized today and patient is on room air. We ordered pulm consult for the patient and chest xray to evaluate for any change in fluid status. Xray showed evidence of CHF exacerbation and patient is to continue his 40mg lasix that he takes daily. -Patient found to have bilateral pleural plaques related to asbestos exposure but no clinical evidence suggestive of significant interstitial lung disease. Potential early pulmonary fibrosis seen with mild chronic atelectasis and mild bronchiectasis? Patient will need full PFTs and DLCO in the future, follow up with Dr. Hermosillo outpatient. -PPI 20mg here with pantoprazole 20mg on discharge for a short period of 2 weeks. -Echocardiogram shows a reduced EF of 35-40%, mild LVH, mild to moderate MR, moderate TR -Monitor I's and O's -Continue patient's home medications -Accu-Cheks, sliding scale insulin low-dose, can be increased to medium dose. Of note his hemoglobin A1c was found to be 10.5 and we will increase his Levemir home dose from 40 units to 45 units. -Lipid panel and thyroid function tests normal DVT prophylaxis with heparin Heart healthy diet Patient is full code Problem List: 1. NSTEMI (non-ST elevated myocardial infarction) 2. Increased oxygen demand Pain Ratin Pain Location: na Pain Goal: Remain pain free Pain Plan: na Tomorrow's Labs & Rationales: cyn
[2017-11-12 08:34] LABS: PTT 49 SEC (25-37)
--- NOTE | 2017-11-12 08:36 | ECHOCARDIOGRAM REPORT ---
MEGHAN GIBBONS Age: 77 : 1940 Gender: M Exam Date: 11/10/2017 10:14 Exam Location: 1 [address] Ht (in): 70 Wt (lb): 215 BSA: 2.22 BP: 169 / 78 Ordering Physician: Livier Reyna MD Referring Physician: Livier Reyna MD Technologist: Kevin Singh [facility] Room Number: [id number] Indications: Chest pain, unspecified Rhythm: Sinus Technical Quality: good FINDINGS Left Ventricle Normal left ventricular size with mild left ventricular hypertrophy. Normal systolic function with no obvious regional wall motion abnormalities. Normal left ventricular diastolic filling pattern for age. The ejection fraction is visually estimated at 35-40 %. Right Ventricle The right ventricle is normal in size and function. Right Atrium The right atrium is normal in size. Left Atrium The left atrium is mildly enlarged. The interatrial septum is intact. Mitral Valve The mitral valve is normal in structure and function. There is mild to moderate mitral regurgitation. Aortic Valve Structurally normal aortic valve without significant sclerosis or stenosis. There is no aortic regurgitation. Tricuspid Valve The tricuspid valve is normal in structure and function. There is moderate tricuspid regurgitation. Pulmonary artery systolic pressure is normal. Pulmonic Valve Structurally normal pulmonic valve. There is trace pulmonic regurgitation. Pericardium Normal pericardium without effusion. No pleural effusion. Great Vessels Normal aortic root dimension. The aortic arch and great vessels are well seen and are normal. CONCLUSIONS 1. Mild to moderately decreased EF of 35-40%. 2. Mild left ventricular hypertrophy. 3. Mild left atrial enlargement. 4. Mild to moderate mitral regurgitation. 5. Moderate tricuspid regurgitation. 6. Trace pulmonic regurgitation. Chai Romeo M.D. (Electronically Signed) Final Date: 12 November 2017 08:33 MEASUREMENTS (Male / Female) Normal Values 2D ECHO LV Diastolic Diameter PLAX 5.6 cm 4.2 - 5.9 / 3.9 - 5.3 cm LV Systolic Diameter PLAX 4.2 cm 2.1 - 4.0 cm LV Fractional Shortening PLAX 25.0 % 25 - 46 % LV Ejection Fraction 2D Teich 48.9 % IVS Diastolic Thickness 1.0 cm LVPW Diastolic Thickness 1.1 cm LV Relative Wall Thickness 0.4 RV Internal Dim ED PLAX 3.5 cm 1.9 - 3.8 cm LVOT Diameter 2.2 cm Aortic Root Diameter 3.4 cm LA Systolic Diameter LX 4.4 cm 3.0 - 4.0 / 2.7 - 3.8 cm LA Volume 54.0 cm 18 - 58 / 22 - 52 cm Ascending Aorta Diameter 3.3 cm DOPPLER AV Peak Velocity 121.0 cm/s AV Peak Gradient 5.9 mmHg AV Mean Velocity 85.1 cm/s AV Mean Gradient 3.0 mmHg AV Velocity Time Integral 29.2 cm LVOT Peak Velocity 80.5 cm/s LVOT Peak Gradient 2.6 mmHg LVOT Mean Velocity 53.5 cm/s LVOT Mean Gradient 1.0 mmHg LVOT Velocity Time Integral 19.4 cm LVOT Stroke Volume 73.7 cm AV Area Cont Eq vti 2.5 cm AV Area Cont Eq pk 2.5 cm MV Peak Velocity 99.1 cm/s MV Peak Gradient 3.9 mmHg MV Mean Velocity 57.6 cm/s MV Mean Gradient 2.0 mmHg Mitral E Point Velocity 106.0 cm/s Mitral A Point Velocity 48.9 cm/s Mitral E to A Ratio 2.2 MV PHT Velocity 107.0 cm/s MV Deceleration Bremer 428.0 cm/s MV Pressure Half Time 75.0 ms MV Area PHT 2.9 cm MV Deceleration Time 292.0 ms MR Peak Velocity 475.0 cm/s MR Peak Gradient 90.3 mmHg TR Peak Velocity 308.0 cm/s TR Peak Gradient 37.9 mmHg Right Atrial Pressure 5.0 mmHg Pulmonary Artery Systolic Pressure 42.9 mmHg Right Ventricular Systolic Pressure 42.9 mmHg PV Peak Velocity 75.8 cm/s PV Peak Gradient 2.3 mmHg PV Mean Velocity 51.6 cm/s PV Mean Gradient 1.0 mmHg PV Velocity Time Integral 16.3 cm LV E' Lateral Velocity 11.3 cm/s Mitral E to LV E' Lateral Ratio 9.4 LV E' Septal Velocity 4.9 cm/s Mitral E to LV E' Septal Ratio 21.8
[2017-11-12] MEDS ORDERED: ASPIRIN81 M4 PO ×2 (08:55→09:59)
[2017-11-12] MEDS ORDERED: NEXIUM40 M1 PO ×3 (09:57→11:03)
[2017-11-12] MEDS ORDERED: NOVOLOG FL100 UNIT/1 SC ×2 (09:57→11:19)
[2017-11-12] MEDS ORDERED: METOPROLOL TART25 M1 PO (09:59)
[2017-11-12] MEDS ORDERED: LEVEMIR100 UNIT/1 SC (09:59)
[2017-11-12] MEDS ORDERED: NITROSTAT0.4 M1 SL (10:41)
[2017-11-12] MEDS ORDERED: NITRO-BID1 GM TOP ×2 (10:53→11:19)
--- NOTE | 2017-11-12 10:54 | PN- Cardiology ---
Subjective Subjective: Feeling well. No chest pain. No palpitations. No shortness of breath. No diaphoresis. No nausea or vomiting. Ventricular rate is normal on telemetry. Objective Vital Signs and I&Os Vital Signs Date Time Temp Pulse Resp B/P B/P Pulse O2 O2 Flow FiO2 Mean Ox Delivery Rate 11/12 0759 90 150/70 11/12 0759 90 150/70 11/12 0656 98.5 90 22 150/70 93 Room Air 11/11 2102 98.6 96 22 156/82 91 Room Air 11/11 2055 91 Room Air 11/11 205 88 156/82 11/11 1503 97.7 79 22 134/70 93 Room Air Intake & Output 11/12 1600 11/12 0000 11/11 1600 11/11 0000 Intake Total 140 93 208 70 Output Total 600 500 200 Balance -460 93 208 -500 -130 Intake, IV 140 93 208 70 Number 1 Bowel Movements Output, Urine 600 500 200 Patient 231 lb Weight Weight Bed scale Measurement Method Physical Exam: Gen: NAD HEENT: normal Lungs: clear to auscultation, normal resp. effort Heart: RRR, S1, S2, 2/6 systolic murmur Abdomen: Soft, nontender, no masses Extremities: No clubbing, cyanosis, or edema. Neuro: Alert and oriented x 3, cranial nerves intact Current Medications: Current Medications Sig/Elham Start time Last Medication Dose Route Stop Time Status Admin Allopurinol 100 MG DAILY 11/10 899 AC 11/12 PO 0758 Amlodipine Besylate 10 MG DAILY 11/10 899 AC 11/12 PO 0759 Aspirin 81 MG DAILY 11/12 899 AC 11/12 PO 0759 Aspirin 325 MG DAILY 11/10 899 DC 11/11 PO 0757 Atorvastatin Calcium 80 MG DAILY 11/10 899 AC 11/12 PO 0759 Cholecalciferol 1,000 IU DAILY 11/10 899 AC 11/12 PO 0758 Clopidogrel Bisulfate 75 MG DAILY 11/10 899 AC 11/12 PO 0758 Furosemide 40 MG DAILY 11/10 899 AC 11/12 PO 0759 Heparin Sodium 3,114 UNIT ONE ONE 11/11 1644 DC 11/11 (Porcine) IV 11/11 1645 1731 Heparin Sodium 25,000 UNIT Q24H 11/09 1100 DC 11/12 (Porcine) IV 0758 Sodium Chloride 500 ML Insulin Aspart 0 TIDAC 11/10 0800 AC 11/11 SC 1651 Insulin Detemir 45 UNITS QPM 11/10 2100 AC 11/11 SC 2051 Metoprolol Tartrate 25 MG BID 11/09 2200 AC 11/12 PO 0759 Nitroglycerin 0.5 GM Q6 11/10 1200 AC 11/12 TOP 0552 Omeprazole 20 MG DAILY AC 11/11 1620 AC 11/12 PO 0552 Patient Medication 1 ED ONE ONE 11/11 1515 DC 11/11 Teaching ED 11/11 1516 1539 Results Last 48 Hrs of Labs/Mics: Laboratory Tests 11/12/17 1030: APTT Cancelled 11/12/17 0619: Anion Gap 9, Estimated GFR 24 L, BUN/Creatinine Ratio 21.5, APTT 49 H 11/11/17 2240: APTT > 120 *H 11/11/17 1450: APTT 46 H 11/11/17 0629: Anion Gap 10, Estimated GFR 25 L, BUN/Creatinine Ratio 20.8, APTT 49 H 11/10/17 1831: APTT 64 H Recent Imaging Studies: Echocardiogram 11/12/17: 1. Mild to moderately decreased EF of 35-40%. 2. Mild left ventricular hypertrophy. 3. Mild left atrial enlargement. 4. Mild to moderate mitral regurgitation. 5. Moderate tricuspid regurgitation. 6. Trace pulmonic regurgitation. Assessment/Plan Assessment/Plan Assessment: 1. Atrial fibrillation 2. CAD with history of CABG 3. Chest pain, with mild troponin elevation. 4. Chronic systolic heart failure, LVEF 3540% Plan: * Planned for trial of medical therapy if possible given renal insufficiency * Continue cardiac medications * The patient is planned for discharge today. * Follow up in [address] Brandon or Dr. Romeo Continue telemetry? Yes
[2017-11-12] MEDS ORDERED: PROTONIX20 M1 PO (11:06)
--- NOTE | 2017-11-16 00:19 | Discharge Summary ---
Hospital Course Allergies: Coded Allergies: NO KNOWN ALLERGIES (11/09/17) Discharge Instructions Medications at Discharge Discharge Medications: Stop taking the following medications: Aspirin (Lite Coat Aspirin) 325 MG TABLET ORAL DAILY Insulin Detemir (Levemir Flextouch) 100 UNIT/ML (3 ML) INSULN.PEN SC DAILY Continue taking these medications: Furosemide (Lasix) 40 MG TABLET 1 Tablet ORAL DAILY Comments: Last Taken:11/12/17 Time:0800 Amlodipine Besylate (Amlodipine Besylate) 10 MG TABLET 1 Tablet ORAL DAILY Comments: Last Taken:11/12/17 Time:0800 Allopurinol (Allopurinol) 100 MG TABLET 1 Tablet ORAL DAILY Comments: Last Taken:11/12/17 Time:0800 Clopidogrel Bisulfate (Clopidogrel) 75 MG TABLET 1 Tablet ORAL DAILY Qty = 30 Comments: Last Taken:11/12/17 Time:0800 Atorvastatin Calcium (Lipitor) 80 MG TABLET 1 Tablet ORAL DAILY Comments: Last Taken:11/12/17 Time:0800 Cholecalciferol (Vitamin D3) (Vitamin D-3) 2,000 UNIT TABLET 1 Tablet ORAL DAILY Comments: Last Taken:11/12/17 Time:0800 Start taking the following new medications: Metoprolol Tartrate (Metoprolol Tartrate) 25 MG TABLET 25 Milligram ORAL TWICE DAILY Qty = 30 Refills = 1 Instructions: . Comments: Last Taken:11/12/17 Time:0800 Aspirin (Aspirin*) 81 MG TAB.CHEW 81 Milligram ORAL DAILY Qty = 60 No Refills Instructions: . Comments: Last Taken:11/12/17 Time:0800 Insulin Detemir (Levemir) 100 UNIT/ML VIAL 45 Units SC Every night Qty = 30 No Refills Instructions: .. Comments: Last Taken:11/11/17 Time:845 PM Nitroglycerin (Nitro-Bid) 2 % OINT...G. 0.5 Gram On the skin EVERY SIX HOURS Qty = 1 No Refills Instructions: . Comments: Last Taken:11/12/17 Time:0630 AM Pantoprazole Sodium (Protonix) 20 MG TABLET.DR 1 Tablet ORAL DAILY Qty = 14 No Refills Comments: Last Taken:11/12/17 Time:0600 PRILOSEC TAKEN The following medications have been changed: Old: Insulin Aspart, Recombinant (Novolog Flexpen) 100 UNIT/ML INSULN.PEN 0 SC 3 TIMES DAILY BEFORE MEALS Qty = 1 New: Insulin Aspart, Recombinant (Novolog Flexpen) 100 UNIT/ML INSULN.PEN 0 SC 3 TIMES DAILY BEFORE MEALS Qty = 1 Instructions: SLIDING SCALE DEPENDING ON GLUCOSE READINGS, see instructions from your primary care doctor Comments: Last Taken:11/11/17 Time:5 PM RECEIVED NOVOLOG
== END 2017-11-12 12:10 | DRG 281 ==
LOC: ERH 08:43 → ERHI 11:15 → 1NO 11:15 → ENRESERV 14:42 → ENTRNSPT 16:09 → EDTRNSPTSTS 16:21 → EDTRNSPT 16:21 → 1NO 16:29 → CMPTRNSPT 16:49 → 1NO 11-10 21:19 → ENPENDDIS 11-12 11:39 → ENTRNSPT 11-12 11:50 → EDTRNSPT 11-12 12:01 → EDTRNSPTSTS 11-12 12:01 → 1NO 11-12 12:10 → CMPTRNSPT 11-12 12:25
PROVIDERS: Emergency Medicine; Internal Medicine; Student in an Organized Health Care Education/Training Program
DX: I21.4 Non-ST elevation (NSTEMI) myocardial infarction (principal); N18.4 Chronic kidney disease, stage 4 (severe); I25.110 Atherosclerotic heart disease of native coronary artery with unstable angina pectoris; Z95.1 Presence of aortocoronary bypass graft; I12.9 Hypertensive chronic kidney disease with stage 1 through stage 4 chronic kidney disease, or unspecified chronic kidney disease; Z79.4 Long term (current) use of insulin; Z68.32 Body mass index [BMI] 32.0-32.9, adult; E11.65 Type 2 diabetes mellitus with hyperglycemia; I25.2 Old myocardial infarction; Z79.02 Long term (current) use of antithrombotics/antiplatelets; Z79.82 Long term (current) use of aspirin; Z87.891 Personal history of nicotine dependence
CPT/HCPCS: 1NSP; 36415; 36592; 71046; 74176; 78582; 81001; 82436; 93005; 93010; 93306; 96374; 96375; 99291; A9540; A9558; J1644; J1815; J3490